=== PATIENT | female | born 1945 ===

== ENCOUNTER 2016-10-16 06:14 | Day surgery (SDC) | payer MEDICARE, OTHER, BC ==
[2016-10-11 11:28] VITALS: BMI 25.9
[2016-10-16 06:43] LABS: ADD MANUAL DIFF? NO
[2016-10-16 06:53] LABS: GRAN % 64.7 % (50.0-68.0); HEMATOCRIT 29.9 % (36.0-48.0); LYMPH # 0.6 (1.2-3.4); LYMPH % 13.2 % (22.0-35.0); MEAN CELL VOLUME 86.7 fL (80.0-105.0); MEAN CORPUSCULAR HEMOGLOBIN 27.8 pg (25.0-35.0); MEAN CORPUSCULAR HGB CONC 32.1 g/dl (31.0-37.0); MEAN PLATELET VOLUME 10.4 fl (7.0-11.0); MONO # 0.9 (0.1-0.6); MONO % 22.1 % (1.0-6.0); PLATELET COUNT 238 10^3/uL (120.0-450.0); RED CELL DISTRIBUTION WIDTH 15.7 % (11.5-14.5); WHITE BLOOD COUNT 4.2 10^3/ul (4.5-11.0)
[2016-10-16] MEDS ORDERED: Iodixanol 320 mg/ml 150 ml Bottle IV ONE (06:55)
[2016-10-16] MEDS ORDERED: Iodixanol 320 MG/ML 200 ML BOTTLE IV ONE (06:55)
[2016-10-16 06:57] LABS: BLOOD UREA NITROGEN 22 mg/dL (7-21); CALCIUM 10.1 mg/dL (8.4-10.5); CARBON DIOXIDE 29 mmol/L (21-33); CHLORIDE 100 mmol/L (98-107); GFR AFRICAN-AMERICAN > 60; GLUCOSE,RANDOM 150 mg/dL (70-110); POTASSIUM 3.9 mmol/L (3.6-5.0); SODIUM 139 mmol/L (132-148)
[2016-10-16 06:59] LABS: INR 1.01 (0.93-1.08); PARTIAL THROMBOPLASTIN TIME 25.8 Seconds (23.7-30.8)
[2016-10-16] MEDS ORDERED: Nitroglycerin 50mg in D5W 250 ML IV ONE (07:09)
[2016-10-16] MEDS ORDERED: Lidocaine 2% Inj (20ml) ONE (07:09)
[2016-10-16] MEDS ORDERED: Midazolam 2 MG/2 ML VIAL ONE ×2 (07:54→08:45)
[2016-10-16] MEDS ORDERED: Sodium Chloride 0.45% 1,000 ML IV SCH (09:45)
[2016-10-16] MEDS ORDERED: Oxycodone/Acetaminophen 5/325 mg Tab ONE ×2 (09:54→14:01)
[2016-10-16] MEDS: Oxycodone/Acetaminophen 5/325 mg Tab PO PRN ×2 (09:55→14:00)
[2016-10-16] MEDS ORDERED: Morphine 2 mg/ml ISec IVP ONE (10:25)
[2016-10-16] MEDS ORDERED: Morphine 2 mg/ml ISec ONE (10:27)
[2016-10-16 11:20] VITALS: RESP 18; TEMP 97.6
[2016-10-16] MEDS ORDERED: Morphine 2 mg/ml ISec IVP STA (11:46)
--- NOTE | 2016-10-16 11:54 | VASCULAR ---
PROCEDURE: 1. Abdominal aortogram and bilateral lower extremity runoff with left selective views. 2. Long segment left SFA silver Hawk atherectomy and drug-eluting balloon angioplasty 3. Left tibioperoneal trunk drug-eluting stent placement HISTORY: Severe peripheral vascular disease. Previous left lower extremity intervention in 2014. Recurrent severe left rest pain. Evaluate for restenosis. PHYSICIAN(S): Caesar Osuna M.D. TECHNIQUE: The relative risks and indications of the procedure were explained to the patient and her and consent obtained. The patient was hydrated prior to the procedure and the appropriate labs drawn. The patient was placed supine on the arteriogram table and the right groin prepped and draped in the usual sterile fashion. Conscious sedation and monitoring were provided throughout the procedure by a nurse. Via a right common femoral artery approach, a 5 American sheath was placed in the right groin. Through the sheath and over a guidewire, a 5 American flush catheter was placed in the abdominal aorta at the level of the renal arteries and a PA DSA abdominal aortogram performed. The catheter was pulled down to the aortic bifurcation and bilateral oblique DSA pelvic arteriograms performed. Overlapping bilateral lower extremity DSA arteriograms were obtained from the inguinal ligaments to the ankles. A 0.035 angled Glidewire was advanced over the bifurcation and placed in the mid left SFA. A 7 American 45 cm destination sheath was placed in the left external iliac artery. Heparin 6000 units IV and nitroglycerin in 250 and see GI aliquot were given. The severe diffuse disease in the left SFA and popliteal arteries was crossed with an angled glidewire 5 American catheter. Exchange was made for a 0.014 support guidewire in the left peroneal artery. 3.5 x 2 cm coronary drug-eluting stent was placed at the focal severe stenosis in the left tibioperoneal trunk. An excellent angiographic result was obtained. Silver Hawk atherectomy of the entire left SFA and left popliteal artery above the knee was performed with an LX catheter. Approximately 4-5 passes were made in all quadrants. The distal left SFA and popliteal arteries were dilated with a 5 mm drug-eluting balloon. The proximal to mid left SFA was dilated with a 6 mm drug-eluting balloon. Completion arteriograms were obtained. The sheath was removed and hemostasis obtained. The patient tolerated the procedure well. FINDINGS: There are single renal arteries bilaterally which demonstrate mild proximal disease.. The nephrograms are symmetric in appearance. The infrarenal abdominal aorta is widely patent without a radiographically significant stenosis. The aortic bifurcation is patent. The stents in the left common and external iliac artery widely patent. No radiographically significant stenosis seen in the iliac inflow. Right lower extremity: The right common femoral artery is patent. The right profunda femoral artery is hypertrophied. The right superficial femoral artery is occluded at its origin. There is reconstitution of the terminal right SFA.. The right popliteal artery is patent and continuous. There is severe right trifurcation and tibial occlusive disease. There is single vessel runoff via the right peroneal artery. A moderate -severe stenosis at the origin of the right peroneal artery is noted. The right posterior tibial and anterior tibial arteries are occluded. Left lower extremity: Left common femoral artery is patent. The left profunda femoral artery is patent proximally. Occlusion of the mid left profunda femoral artery. The left superficial femoral artery is diffusely disease with slow antegrade flow. There are critical stenoses in the mid to distal left SFA. The left popliteal artery is diseased above the knee. Once again there is severe left trifurcation and tibial occlusive disease. There is a severe stenosis of the left tibioperoneal trunk. There is single vessel runoff via the left peroneal artery. There is reconstitution of the distal left posterior tibial artery.. IMPRESSION: 1.Diffuse left SFA silver Hawk atherectomy and drug-eluting balloon angioplasty. 2. Successful left tibioperoneal trunk drug-eluting stent placement 3. Severe bilateral trifurcation and tibial occlusive disease. 4. Long segment right SFA occlusion. 5. And left common and external iliac artery stents.
[2016-10-16 13:00] VITALS: O2SAT 99
[2016-10-16 14:14] VITALS: BP 166/61; PULSE 52
== END 2016-10-16 16:00 | disposition home or self-care (01) ==
LOC: SDSVAS 06:14
PROVIDERS: ATTEND Radiology Vascular & Interventional Radiology
DX: I70.222 Atherosclerosis of native arteries of extremities with rest pain, left leg (principal)
CPT/HCPCS: 36415; 37225; 37230; 75625; 75716; 80048; 85025; 85610; 85730; 99152; 99153; C1714; C1725 ×5; C1760 ×3; C1769 ×3; C1874; C1887 ×2; C1894 ×2; J1644 ×2; J2250; J2270; J2405; J3010; J7030

== ENCOUNTER 2017-01-30 13:32 | Inpatient (IN) | payer MEDICARE, BC ==
[2017-01-30 13:37] VITALS: BMI 22.6
[2017-01-30] MEDS ORDERED: Piperacill/Tazo 4.5gm in NS 4.5 GM/100 ML BAG IVPB STA (14:11)
[2017-01-30] MEDS ORDERED: Vancomycin 1gm in NS 250ml 1 GM/250 ML BAG IVPB STA (14:11)
--- NOTE | 2017-01-30 14:24 | ED PDOC ---
Arrival/HPI - General Chief Complaint: Weakness/Neurological Deficit Time Seen by Provider: 01/30/17 13:58 Historian: Patient - History of Present Illness Narrative History of Present Illness (Text): 01/30/17 14:28 A 71 year old female, whose past medical history includes diabetes and hypertension, presents to the emergency department complaining of generalized weakness and lightheadedness for the past couple of days. Patient also notes poor appetite and a sore throat but denies any cough, abdominal pain or any other complaints at this time. Time/Duration: < week Symptom Onset: Sudden Symptom Course: Unchanged Activities at Onset: Rest Context: Home Past Medical History - Provider Review Nursing Documentation Reviewed: Yes - Infectious Disease Hx of Infectious Diseases: None - Tetanus Immunization Tetanus Immunization: Unknown - Cardiac Hx Hypertension: Yes Hx Pacemaker: No - Pulmonary Hx Respiratory Disorders: No - Neurological Hx Paralysis: No - HEENT Hx Cataracts: Yes (Bilateral surgery) - Renal Hx Renal Disorder: No - Endocrine/Metabolic Hx Diabetes Mellitus Type 2: Yes - Hematological/Oncological Hx Blood Transfusions: No Hx Blood Transfusion Reaction: No Hx Cancer: Yes (Breast Ca & SKin CA) - Integumentary Hx Dermatological Disorder: No - Musculoskeletal/Rheumatological Hx Musculoskeletal Disorders: No - Gastrointestinal Hx Gastroesophageal Reflux: Yes - Genitourinary/Gynecological Hx Genitourinary Disorders: No - Psychiatric Hx Emotional Abuse: No Hx Physical Abuse: No Hx Substance Use: No - Surgical History Hx Open Heart Surgery: Yes Other/Comment: R breast mastectomy - Anesthesia Hx Anesthesia: Yes Hx Anesthesia Reactions: No Hx Malignant Hyperthermia: No - Suicidal Assessment Feels Threatened In Home Enviroment: No Family/Social History - Physician Review Nursing Documentation Reviewed: Yes Family/Social History: No Known Family HX Smoking Status: Never Smoked Hx Alcohol Use: No Hx Substance Use: No Hx Substance Use Treatment: No Allergies/Home Meds Allergies/Adverse Reactions: Allergies No Known Allergies Allergy (Verified 03/06/15 16:23) Home Medications: Home Meds Medication Instructions Recorded Confirmed Aspirin [Aspir 81] 81 mg PO DAILY 10/23/12 01/30/17 Clopidogrel [Plavix] 75 mg PO QPM 10/23/12 01/30/17 Omega3,5,6,7,9 No.1/[place] Oil 1 cap PO DAILY 09/20/15 01/30/17 [Complete [place] Softgel] Rosuvastatin Calcium [Crestor] 5 mg PO DAILY 09/20/15 01/30/17 Losartan/Hydrochlorothiazide 1 tab PO DAILY 10/11/16 01/30/17 [Losartan Potassium-Hydrochlorothiazide 12.5 M] Meclizine [Antivert] 25 mg PO TID PRN 10/11/16 01/30/17 Metformin HCl [Glucophage] 500 mg PO BID 10/11/16 01/30/17 Metoprolol Tartrate [Lopressor] 50 mg PO BID 10/11/16 01/30/17 Mometasone Furoate [Nasonex] 0.05 mg NS DAILY 10/11/16 01/30/17 hydrALAZINE [hydralazine 25 mg PO BID 10/11/16 01/30/17 Hydrochloride] Review of Systems - Physician Review All systems were reviewed & negative as marked: Yes Physical Exam - Physical Exam Narrative Physical Exam (Text): 01/30/17 14:24 - Review of Systems Constitutional: Generalized weakness, lightheadedness. absent: Fatigue, Weight Change, Fevers Eyes: Normal ENT: Sore throat Respiratory: Normal absent: SOB, Cough, Sputum Cardiovascular: Normal absent: Chest pain, Palpitations, Syncope Gastrointestinal: Normal absent: Abdominal pain, Diarrhea, Nausea, Vomiting Genitourinary: Decrease in appetite absent: Dysuria, Frequency, Hematuria Musculoskeletal: Normal. absent: Arthralgias, Back Pain, Neck Pain Skin: Normal Neurological: Normal absent: Focal Weakness Endocrine: Normal Hemo/Lymphatic: Normal Psychiatric: Normal - Physical exam Patient appears age appropriate, speaking full sentences without difficulty - Systems Exam Head: Present: Atraumatic, Normocephalic Pupils: Present: PERRL Extraocular Muscles: Present: EOMI Conjunctiva: Present: Normal Mouth: Present: Dry Mucous Membranes Neck: Present: Normal Range of Motion. No pain with hyoid manipulation. No: MIDLINE TENDERNESS, Paraspinal Tenderness Respiratory/Chest: Present: Clear to Auscultation, Good Air Exchange. No: Respiratory Distress, Accessory Muscle Use, Tachypnic Cardiovascular: Present: Regular Rate and Rhythm, Normal S1, S2, Peripheral Pulses Present. No: Murmurs Abdomen: Present: Normal Bowel Sounds, No: Tenderness, Peritoneal Signs, Rebound, Guarding, Distention Back: Present: Normal Inspection. No: Midline Tenderness, Paraspinal Tenderness Upper Extremity: Present: Normal Inspection. No: Cyanosis, Edema Lower Extremity: Present: Normal Inspection. No: Edema Neurological: Present: GCS=15, Speech Normal, cranial nerves II through XII fully intact with no cerebellar abnormality, neuro-sensory fully intact. No focal neurological deficits. Skin: Present: Warm, Dry, Normal Color. No: Rashes Lymphatic: Present: OX3, NI, NC Psychiatric: Present: Alert, Oriented x 3, Normal Insight, Normal Concentration Vital Signs Reviewed: Yes Vital Signs Temp Pulse Resp BP Pulse Ox 01/30/17 16:01 100.9 F H 01/30/17 13:52 100.9 F H 01/30/17 13:42 98.8 F 79 18 114/56 L 98 Temperature: Afebrile Blood Pressure: Hypotensive Pulse: Regular Respiratory Rate: Normal Appearance: Positive for: Well-Appearing, Non-Toxic, Comfortable, Other ( lethargic) Pain Distress: None Mental Status: Positive for: Alert and Oriented X 3 - Systems Exam Pharnyx: Present: Normal. No: ERYTHEMA, EXUDATE, TONSILS ENLARGED, Peritonsilar Swelling Medical Decision Making ED Course and Treatment: 01/30/17 14:22 Impression: A 71 year old female with generalized weakness, lightheadedness and poor appetite. Appears dehydrated on examination. Differential Diagnosis included but are not limited to: dehydration vs. sepsis vs. uremia Plan: -- EKG -- chest xray -- labs -- Urinalysis -- IV fluids, Tylenol, Vancomycin, Zosyn -- Reassess and disposition Prior Visits: Notes and results from previous visits were reviewed. Patient was last seen in the emergency department on 09/20/15 for evaluation of generalized weakness, poor appetite, dysuria, headache and nasal congestion. Progress Notes: 01/30/17 16:11 BUN elevated, fluids ordered abx ordered K low, kcl and mg ordered Chest xray interpreted by ED physician shows no pneumothorax, no cardiomegaly, no infiltrates pt in no distress at this time dw Dr. Bowden, agrees with admission to her service pt and aware of and agree with plan - Lab Interpretations Lab Results: 01/30/17 15:00 01/30/17 15:00 Lab Results 01/30/17 15:00: Sodium 138, Chloride 104, Potassium 3.1 L, Carbon Dioxide 19 L, Anion Gap 18, BUN 50 H, Creatinine 1.1, Est GFR ( Amer) 59, Est GFR (Non- Af Amer) 49, Random Glucose 125 H, Calcium 9.3, Phosphorus 2.7, Magnesium 1.6 L , Total Bilirubin 0.5, AST 35, ALT 28, Alkaline Phosphatase 80, Total Protein 7.5, Albumin 3.8, Globulin 3.8, Albumin/Globulin Ratio 1.0 L 01/30/17 15:00: pO2 44, VBG pH 7.37, VBG pCO2 40.0, VBG HCO3 23.1, VBG Total CO2 24.3, VBG O2 Sat (Calc) 84.1 H, VBG Base Excess -2.0 L, VBG Potassium 3.8, Sodium 135.0, Chloride 104.0, Glucose 145 H, Lactate 1.4, FiO2 21.0, Venous Blood Potassium 3.8 01/30/17 15:00: PT 11.8, INR 1.09 H, APTT 32.8 H 01/30/17 15:00: WBC 6.8 D, RBC 3.17 L, Hgb 8.9 L, Hct 26.4 L, MCV 83.3, MCH 28.1, MCHC 33.7, RDW 15.4 H, Plt Count 110 L, MPV 11.8 H, Gran % 86.4 H, Lymph % (Auto) 4.3 L, [place] % (Auto) 9.3 H, Eos % (Auto) 0.0 L, Baso % (Auto) 0.0, Gran # 5.88, Lymph # 0.3 L, [place] # 0.6, Eos # 0.0, Baso # 0.00 I have reviewed the lab results: Yes - RAD Interpretation Radiology Orders: 01/30/17 14:11 CHEST PORTABLE [RAD] Stat - EKG Interpretation Interpreted by ED Physician: Yes Type: 12 lead EKG - Medication Orders Current Medication Orders: Magnesium Sulfate/Dextrose (Magnesium Sulfate 1 Gm/100 Ml D5w) 1 gm in 100 mls @ 100 mls/hr IVPB ONCE ONE Stop: 01/30/17 17:06 Potassium Chloride (Potassium Chloride 20 Meq/100 Ml) 20 meq in 100 mls @ 50 mls/hr IVPB Q2H SETH Stop: 01/30/17 20:14 Discontinued Medications Acetaminophen (Tylenol 325mg Tab) 975 mg PO ONCE PRN PRN Reason: Fever >100.4 F Last Admin: 01/30/17 16:01 Dose: 975 mg Sodium Chloride 2,000 ml/ IV (SUPPLIES) 2,000 mls @ 3,810.18 mls/hr IV ONCE ONE PRN Reason: 60 ML/KG/HR Stop: 01/30/17 14:12 Last Admin: 01/30/17 15:20 Dose: 3,810.18 mls/hr Vancomycin HCl (Vancomycin 1gm) 1 gm in 250 mls @ 167 mls/hr IVPB STAT STA PRN Reason: Protocol Stop: 01/30/17 15:40 Piperacillin Sod/Tazobactam Sod (Zosyn 4.5 Gm In Ns 100ml) 4.5 gm in 100 mls @ 200 mls/hr IVPB STAT STA PRN Reason: Protocol Stop: 01/30/17 14:40 Last Admin: 01/30/17 15:20 Dose: 200 mls/hr Potassium Chloride (K-Dur 20 Meq Er Tab) 20 meq PO STAT STA Stop: 01/30/17 16:08 - Scribe Statement The provider has reviewed the documentation as recorded by the Ernesto Singh Provider Scribe Attestation: All medical record entries made by the Ernesto were at my direction and personally dictated by me. I have reviewed the chart and agree that the record accurately reflects my personal performance of the history, physical exam, medical decision making, and the department course for this patient. I have also personally directed, reviewed, and agree with the discharge instructions and disposition. Disposition/Present on Arrival - Present on Arrival Any Indicators Present on Arrival: No History of DVT/PE: No History of Uncontrolled Diabetes: No Urinary Catheter: No History of Decub. Ulcer: No History Surgical Site Infection Following: None - Disposition Have Diagnosis and Disposition been Completed?: Yes Diagnosis: Fever Disposition: HOSPITALIZED Disposition Time: 16:14 Patient Plan: Admission Condition: FAIR
[2017-01-30 15:21] LABS: VENOUS BLOOD GAS PO2 44 mm/Hg (30-55); VENOUS BLOOD PH 7.37 (7.32-7.43)
[2017-01-30 15:28] LABS: GRAN # 5.88 (1.4-6.5); GRAN % 86.4 % (50.0-68.0); HEMOGLOBIN 8.9 gm/dL (12.0-16.0); LYMPH # 0.3 (1.2-3.4); LYMPH % 4.3 % (22.0-35.0); MEAN CELL VOLUME 83.3 fL (80.0-105.0); MEAN CORPUSCULAR HEMOGLOBIN 28.1 pg (25.0-35.0); MEAN CORPUSCULAR HGB CONC 33.7 g/dl (31.0-37.0); MEAN PLATELET VOLUME 11.8 fl (7.0-11.0); MONO # 0.6 (0.1-0.6); MONO % 9.3 % (1.0-6.0); PLATELET COUNT 110 10^3/uL (120.0-450.0); RBC 3.17 10^6/uL (3.5-6.1); RED CELL DISTRIBUTION WIDTH 15.4 % (11.5-14.5); WHITE BLOOD COUNT 6.8 10^3/ul (4.5-11.0)
[2017-01-30 15:31] LABS: ALBUMIN 3.8 g/dL (3.0-4.8); CALCIUM 9.3 mg/dL (8.4-10.5); MAGNESIUM 1.6 mg/dL (1.7-2.2)
[2017-01-30 15:33] LABS: INR 1.09 (0.93-1.08); PARTIAL THROMBOPLASTIN TIME 32.8 Seconds (23.7-30.8); PROTHROMBIN TIME 11.8 Seconds (9.9-11.8)
--- NOTE | 2017-01-30 15:33 | RAD ---
HISTORY: Sepsis Patient COMPARISON: 09/20/2015 FINDINGS: LUNGS: The lungs us clear. There is a running suture in the right lower lobe. No focal consolidation. PLEURA: No significant pleural effusion identified, no pneumothorax apparent. CARDIOVASCULAR: The heart is normal in size. Status post median sternotomy. OSSEOUS STRUCTURES: No significant abnormalities. VISUALIZED UPPER ABDOMEN: Normal. OTHER FINDINGS: There are multiple surgical clips in the right axilla. IMPRESSION: No active pulmonary disease.
[2017-01-30] MEDS ORDERED: Magnesium Sulfate 1 gm in D5W 1 GM/100 ML BAG IVPB ONE (16:07)
[2017-01-30] MEDS ORDERED: Potassium Chloride 20 mEq ER Tab PO STA (16:07)
--- NOTE | 2017-01-30 18:39 | CARD ---
APPROVED REPORT EKG Measurement Heart [id number] <Conclusion> Normal sinus rhythm Possible Left atrial enlargement Borderline ECG
--- NOTE | 2017-01-30 21:25 | CT ---
EXAM: CT Chest Without Intravenous Contrast CLINICAL HISTORY: 71 years old, female; Signs and symptoms; Fever; Additional info: Fever/wt loss TECHNIQUE: Axial computed tomography images of the chest without intravenous contrast. This CT exam was performed using one or more of the following dose reduction techniques: automated exposure control, adjustment of the mA and/or kV according to patient size, and/or use of iterative reconstruction technique. MIP reconstructed images were created and reviewed. Coronal and sagittal reformatted images were created and reviewed. COMPARISON: DX - CHEST PORTABLE 01/30/2017 2:40:13 PM FINDINGS: Limitations: Lack of intravenous contrast. Motion artifact - mild to moderate. Lungs: No consolidation. Postsurgical changes/scarring within RIGHT lung base. Limited evaluation for nodules due to motion. Few subcentimeter pulmonary nodules and/or focal scarring, up to 0.3 cm. Pleural space: Trace LEFT pleural effusion. No pneumothorax. Heart: Borderline cardiomegaly. No significant pericardial effusion. Coronary artery calcifications. Bones/joints: Median sternotomy. Degenerative changes of spine. No acute fracture. Soft tissues: Mild stranding within subcutaneous tissues. Postsurgical changes of RIGHT axilla. Vasculature: Mild atherosclerotic disease of aorta. No aneurysm. Lymph nodes: No pathologically enlarged lymph nodes. IMPRESSION: 1. Trace LEFT pleural effusion. 2. Pulmonary nodules. Compare with prior examinations/followup as per institution protocol. 3. Incidental/non-acute findings are described above.
[2017-01-30] MEDS: Insulin Lispro (humaLOG) MEDIUM Coverage SC SCH (23:08)
--- NOTE | 2017-01-31 00:47 | CP.PCM.PN ---
Subjective - Date & Time of Evaluation Date of Evaluation: 01/31/17 Time of Evaluation: 00:45 - Subjective Subjective: Patient was seen at bedside. She had temperature 102.9*F. Also complained of weakness. Received tyl 975 @ 4 pm Received zosyn, vancomycin. Blood culture, u/a c&s ,cxr done. ROS:Negative except as mentioned above. This 71 year old woman was admitted with weakness,dizziness,light headedness and complaint of not eating well. Has PMH of HTN,HLD, CAD, open hear surgery ,angioplast for Fem Pop bypass . Objective - Vital Signs/Intake and Output Vital Signs (last 24 hours): Temp Pulse Resp BP Pulse Ox 100.9 F H 98 H 16 133/84 100 01/30/17 22:38 01/30/17 23:00 01/30/17 22:38 01/30/17 23:00 01/30/17 20:02 - Medications Medications: Current Medications Aspirin (Ecotrin) 81 mg PO DAILY SETH Clopidogrel Bisulfate (Plavix) 75 mg PO QPM [facility] Ceftriaxone Sodium (Rocephin 1 Gram Ivpb) 1 gm in 100 mls @ 100 mls/hr IVPB DAILY SETH PRN Reason: Protocol Insulin Human Lispro (Humalog Med) 0 units SC ACHS SETH PRN Reason: Protocol Last Admin: 01/30/17 23:08 Dose: Not Given Meclizine HCl (Antivert) 25 mg PO TID PRN PRN Reason: Dizziness Metoprolol Tartrate (Lopressor) 50 mg PO BID [facility] Last Admin: 01/30/17 23:00 Dose: 50 mg - Labs Labs: PT 11.8 Seconds (9.9-11.8) 01/30/17 15:00 INR 1.09 (0.93-1.08) H 01/30/17 15:00 APTT 32.8 Seconds (23.7-30.8) H 01/30/17 15:00 - Constitutional Appears: Well, No Acute Distress - Head Exam Head Exam: ATRAUMATIC, NORMAL INSPECTION, NORMOCEPHALIC - Eye Exam Eye Exam: Normal appearance - ENT Exam ENT Exam: Normal External Ear Exam - Neck Exam Neck Exam: Normal Inspection - Respiratory Exam Respiratory Exam: NORMAL BREATHING PATTERN - Cardiovascular Exam Cardiovascular Exam: absent: JVD - GI/Abdominal Exam GI & Abdominal Exam: absent: Distended - Rectal Exam Rectal Exam: Deferred - Exam Additional comments: Deferred. - Extremities Exam Extremities Exam: Normal Inspection - Back Exam Back Exam: NORMAL INSPECTION - Neurological Exam Neurological Exam: Alert, Oriented x3 - Psychiatric Exam Psychiatric exam: Normal Affect, Normal Mood - Skin Skin Exam: Normal Color Assessment and Plan - Assessment and Plan (Free Text) Assessment: Fever. HTN. HLD. Hx open heart surgery. Hx Fem Pop bypass surgery. Plan: Tylenol as ordered. ID consultation. Continue present management .
--- NOTE | 2017-01-31 05:24 | HP ---
HISTORY OF PRESENT ILLNESS: The patient is 71 years old who came to emergency room because of generalized weakness, feels dizzy, lightheaded and has not been eating well. It is going on for almost a week. She lost some weight, poor appetite. No history of fever or chills at home. No history of hemoptysis. No hematemesis. No diarrhea. PAST MEDICAL HISTORY: Significant for: 1. Cardiac cath and coronary artery disease, had cath done in 03/2014. 2. Hypertension. 3. Hyperlipidemia. 4. History of open heart surgery. 5. Status post angioplasty for left femoropopliteal trunk trifurcation. SOCIAL HISTORY: She is , lives with her . No history of smoking, drinking or alcohol use. FAMILY HISTORY: Not relevant. ALLERGIES: SHE IS NOT ALLERGIC TO ANY MEDICATIONS. MEDICATIONS AT HOME: She is on: 1. [place]-3 fish oil. 2. Losartan 50 mg daily. 3. Anastrozole 1 mg daily. 4. Hydralazine 25 twice a day. 5. Lopressor 50 mg twice a day. 6. Aspirin 81 daily. 7. Metformin 500 twice a day. 8. Metoprolol 50 mg daily. 9. Crestor 5 mg daily. 10. Nasonex nasal spray. PHYSICAL EXAMINATION GENERAL: She looks lethargic and weak. HEAD AND NECK: Dry oral mucosa. Pale conjunctivae. No lymphadenopathy. VITAL SIGNS: Temperature 100.9, pulse 79, respirations 18 and blood pressure 127/57. LUNGS: Bilateral fair airflow. No rhonchi or crackle. HEART: S1 and S2 audible. ABDOMEN: Soft and nontender. No rebound. No guarding. NEUROLOGIC: The patient is awake and alert, sleepy but arousable. LABORATORY DATA: WBC 6.8, hemoglobin 8.9, hematocrit 26.4 and platelet of 110. INR 1.09 and PTT 32.8. Chemistry: Sodium 138, potassium 3.1, chloride 104, CO2 of 19, BUN 50, creatinine 1.1, blood sugar of 129 and magnesium 1.6. EKG is normal sinus rhythm, possible left atrial enlargement. X-ray chest, no active disease. ASSESSMENT AND PLAN: 1. Dehydration with poor appetite and weight loss. 2. Hypokalemia. 3. Hypomagnesemia. 4. Coronary artery disease, status post open heart surgery. 5. Non-insulin dependent diabetes. 6. Fever with normal white count, source is unknown yet. We will send blood culture and urine culture. I have ordered for CT scan of the chest and will start her on IV fluid. Monitor her electrolyte and H and H in a.m. Aldo Sierra MD
[2017-01-31 09:04] LABS: GRAN # 3.05 (1.4-6.5); HEMOGLOBIN 9.2 gm/dL (12.0-16.0); LYMPH # 0.1 (1.2-3.4); LYMPH % 2.4 % (22.0-35.0); MEAN CELL VOLUME 83.9 fL (80.0-105.0); MEAN CORPUSCULAR HEMOGLOBIN 27.9 pg (25.0-35.0); MEAN CORPUSCULAR HGB CONC 33.2 g/dl (31.0-37.0); MEAN PLATELET VOLUME 11.3 fl (7.0-11.0); MONO # 0.6 (0.1-0.6); MONO % 15.6 % (1.0-6.0); PLATELET COUNT 75 10^3/uL (120.0-450.0); RED CELL DISTRIBUTION WIDTH 15.5 % (11.5-14.5); WHITE BLOOD COUNT 3.7 10^3/ul (4.5-11.0)
[2017-01-31 09:15] LABS: ALBUMIN 3.9 g/dL (3.0-4.8); CALCIUM 9.6 mg/dL (8.4-10.5); MAGNESIUM 1.8 mg/dL (1.7-2.2)
[2017-01-31] MEDS: cefTRIAXone 1 gm 1 GM/100 ML BAG IVPB SCH (09:55)
[2017-01-31] MEDS ORDERED: Non Formulary Medication (Losartan/Hydrochlorothiazide [Losartan-Hctz 50-12.5 Mg Tab] 1 TA PO SCH (10:00)
[2017-01-31] MEDS: Insulin Lispro (humaLOG) MEDIUM Coverage SC SCH ×3 (10:58→17:02)
[2017-01-31] MEDS: POLYETHYLENE GLYCOL 3350 17 GM/Dose PACKET PO SCH (17:05)
--- NOTE | 2017-01-31 17:44 | PN ---
SUBJECTIVE: The patient is a 71 years old, seen and examined. She states she feels lot better. She has generalized weakness going for 2 to 3 days with low grade fever at home. She still does not have appetite. No nausea or vomiting. PHYSICAL EXAMINATION: VITAL SIGNS: She is afebrile, pulse 68, respirations 16, and blood pressure 113/51. LUNGS: Bilateral fair airflow. No rhonchi or crackle. HEART: S1 and S2 audible. ABDOMEN: Soft. Nontender. No rebound. No guarding. NEUROLOGIC: The patient is awake and alert; able to communicate. No focal deficit. Bilateral leg, no edema. LABORATORY DATA: Blood cultures are negative. Urine cultures are pending. WBC is 3.7, hemoglobin 9.2, hematocrit 37, and platelet count of 75. PT 11.8 and INR 1.09. Chemistries: Sodium 141, potassium of 4.0, chloride 107, CO2 of 18, BUN 23, creatinine 1.5, blood sugar of 139, AST 88, ALT 74, alkaline phos is 202. CT scan of the chest was done that shows traced left pleural effusion, pulmonary nodule. ASSESSMENT AND PLAN: 1. Generalized weakness with poor appetite. 2. Fever, etiology unknown. 3. History of hypertension. 4. Constipation. 5. Pancytopenia. PLAN: for iron studies; order for abdominal sonogram, for consult. I will also order for hepatitis profile. Continue IV fluid, out of bed to chair with physical therapy. We will reevaluate the patient in a.m. and discontinued telemetry. Aldo Sierra MD
--- NOTE | 2017-01-31 23:23 | US ---
EXAM: US Abdomen Complete CLINICAL HISTORY: 71 years old, female; Pain; Abdominal pain; Acute; Additional info: Abnormal lfts TECHNIQUE: Real-time ultrasound of the abdomen (complete) with image documentation. COMPARISON: No relevant prior studies available. FINDINGS: Liver: The liver is unremarkable in echogenicity and size measuring 14.3 cm in longitudinal dimension. No acute findings. No intrahepatic bile duct dilation. Gallbladder: No acute findings. No gallstones. Common bile duct: No stones. No dilation, measuring 4.5 mm. Pancreas: Visualization of the pancreas is limited by overlying bowel gas. Right kidney: Unremarkable echogenicity and size measuring 9.2 x 3.9 x 5.5 cm. No acute findings. No hydronephrosis. Left Kidney: Unremarkable in echogenicity and size measuring 9.2 x 4.8 x 5.4 cm. No hydronephrosis. Spleen: Within the upper limits of normal for size measuring 11.5 cm in longitudinal dimension. Aorta: Unremarkable. Inferior vena cava: patent. IMPRESSION: Limited evaluation of the pancreas, secondary to overlying bowel gas. Spleen within the upper limits of normal for size. Otherwise, unremarkable sonographic evaluation of the abdomen, as detailed above.
[2017-02-01] MEDS: Insulin Lispro (humaLOG) MEDIUM Coverage SC SCH ×5 (00:18→21:58)
[2017-02-01 06:34] LABS: MEAN CELL VOLUME 82.2 fL (80.0-105.0); MEAN CORPUSCULAR HEMOGLOBIN 27.4 pg (25.0-35.0); MEAN CORPUSCULAR HGB CONC 33.3 g/dl (31.0-37.0); MEAN PLATELET VOLUME 11.8 fl (7.0-11.0); PLATELET COUNT 70 10^3/uL (120.0-450.0); RBC 2.59 10^6/uL (3.5-6.1); RED CELL DISTRIBUTION WIDTH 15.6 % (11.5-14.5); WHITE BLOOD COUNT 3.3 10^3/ul (4.5-11.0)
[2017-02-01 06:37] LABS: HEMOGLOBIN 7.1 gm/dL (12.0-16.0)
[2017-02-01 06:57] LABS: ALBUMIN 3.1 g/dL (3.0-4.8); ALT/SGPT 73 U/L (7-56); AST/SGOT 71 U/L (15-39); BLOOD UREA NITROGEN 35 mg/dL (7-21); CALCIUM 8.6 mg/dL (8.4-10.5); GFR AFRICAN-AMERICAN 59; GFR NON-AFRICAN AMERICAN 49
[2017-02-01 06:59] LABS: % IRON SATURATION 15 % (20-55); IRON 30 ug/dL (45-180); TOTAL IRON BINDING CAPACITY 205 ug/dL (265-497)
[2017-02-01 08:19] LABS: BAND 2 % (0-2); LYMPHOCYTE 13 % (22.0-35.0); METAMYELOCYTE 1 %; MONOCYTE 11 % (1.0-6.0); NEUTROPHIL 73 % (50.0-70.0)
[2017-02-01 08:20] LABS: LARGE PLATELETS PRESENT; PLATELET ESTIMATE LOW (NORMAL)
[2017-02-01] MEDS: cefTRIAXone 1 gm 1 GM/100 ML BAG IVPB SCH (09:18)
[2017-02-01] MEDS: POLYETHYLENE GLYCOL 3350 17 GM/Dose PACKET PO SCH (09:22)
[2017-02-01] MEDS: Potassium Chloride 20 mEq ER Tab PO SCH (10:46)
--- NOTE | 2017-02-01 11:36 | CP.PCM.PN ---
Subjective - Date & Time of Evaluation Date of Evaluation: 02/01/17 Time of Evaluation: 11:35 - Subjective Subjective: pt needs angiocath insertion . Objective - Vital Signs/Intake and Output Vital Signs (last 24 hours): Temp Pulse Resp BP Pulse Ox 98.6 F 67 20 113/63 96 02/01/17 06:00 02/01/17 09:22 02/01/17 06:00 02/01/17 09:22 02/01/17 06:00 Intake and Output: 02/01/17 02/01/17 06:59 18:59 Intake Total 120 Balance 120 - Medications Medications: Current Medications Acetaminophen (Tylenol 325mg Tab) 650 mg PO Q4H PRN PRN Reason: Temp > 100.4*F. Last Admin: 02/01/17 10:46 Dose: 650 mg Acetaminophen (Tylenol 325mg Tab) 650 mg PO Q6H PRN PRN Reason: Other Aspirin (Ecotrin) 81 mg PO DAILY [facility] Last Admin: 02/01/17 09:35 Dose: Not Given Clopidogrel Bisulfate (Plavix) 75 mg PO QPM [facility] Last Admin: 01/31/17 17:01 Dose: 75 mg Ceftriaxone Sodium (Rocephin 1 Gram Ivpb) 1 gm in 100 mls @ 100 mls/hr IVPB DAILY [facility] PRN Reason: Protocol Last Admin: 02/01/17 09:18 Dose: 100 mls/hr Insulin Human Lispro (Humalog Med) 0 units SC ACHS [facility] PRN Reason: Protocol Last Admin: 02/01/17 08:04 Dose: Not Given Meclizine HCl (Antivert) 25 mg PO TID PRN PRN Reason: Dizziness Metoprolol Tartrate (Lopressor) 50 mg PO BID [facility] Last Admin: 02/01/17 09:22 Dose: 50 mg Polyethylene Glycol (Miralax) 17 gm PO DAILY [facility] Last Admin: 02/01/17 09:22 Dose: 17 gm Potassium Chloride (K-Dur 20 Meq Er Tab) 20 meq PO BRK [facility] Last Admin: 02/01/17 10:46 Dose: 20 meq - Labs Labs: 02/01/17 08:30 02/01/17 06:10 PT 11.8 Seconds (9.9-11.8) 01/30/17 15:00 INR 1.09 (0.93-1.08) H 01/30/17 15:00 APTT 32.8 Seconds (23.7-30.8) H 01/30/17 15:00 Assessment and Plan - Assessment and Plan (Free Text) Assessment: 20 guage angiocath inserted in left wrist area.
--- NOTE | 2017-02-01 11:42 | CP.PCM.CON ---
<Tammie Dumont - Last Filed: 02/01/17 11:49> History of Present Illness - History of Present Illness History of Present Illness: Seen and examined at bedside, chart reviewed. Request for consult is for Anemia. HPI: This is a 71 year old female with a PMH of CAD, cardiac catherization 2013 on Plavix, HTN, Colon polyps, Anemia came to the ER with complaints of generalized weakness, dizziness and poor appetite. Patient denies fever, chills , N/V or abdominal pain. Had fever 102 on admission, blood culture negative, she had CXR that was negative for acute findings, ct scan of the chest was done and found to have trace pleural effusion, pulmonary nodules that unchanged, compared to one done 01/2015. On routine labs, hemaglobin is 7.1, on admission was 9.2. The patient denies SOB, CP,N/V. Does not notice melena or BRBPR. She just getting her weight back, she was in the hospital for fall in July. Her last EGD/Colon was done for Anemia 06/[address] Angulo, found gastric erosion, negative BX, and colon polyps that was tubular adenoma, rectal polyps was hyperplastic. No change in bowel habit, denies relux. She did state that she has been on iron supplements in the past. Her PCP, Dr. Magana gave her a script for EGD, she has yet to get this set up. PMH: CAD, cardiac catherization 2013, HTN, HLD,Anemia, colon polyps PSH: open heart , angioplasty left femoropopliteal trunk trifurcation Social HX: denies smoking, etoh, drugs Family HX: nephew, stomach cancer Allergies: NKDA MEDS: reviewed as per SEP ROS: systems reviewed with positive findings, see HPI Abdominal US: no GB stone, CBD 4.5mm, unremarkable, pancreas limited secondary to gas. Past Patient History - Infectious Disease Hx of Infectious Diseases: None - Tetanus Immunizations Tetanus Immunization: Unknown - Past Social History Smoking Status: Never Smoked - CARDIAC Hx Hypertension: Yes - PULMONARY Hx Respiratory Disorders: No - NEUROLOGICAL Hx Neurological Disorder: No - HEENT Hx Cataracts: Yes (Bilateral surgery) - RENAL Hx Chronic Kidney Disease: No - ENDOCRINE/METABOLIC Hx Diabetes Mellitus Type 2: Yes - HEMATOLOGICAL/ONCOLOGICAL Hx Cancer: Yes (Breast Ca & SKin CA) Hx Chemotherapy: Yes Other/Comment: diagnosed with r breast ca 2 yrs ago had chemo and radiation - INTEGUMENTARY Hx Dermatological Problems: No - MUSCULOSKELETAL/RHEUMATOLOGICAL Hx Falls: No Hx Unsteady Gait: Yes (cane) - GASTROINTESTINAL Hx Gastroesophageal Reflux: Yes Other/Comment: egd/colonoscopy 06/11/14,hiatal hernia, esophagitis, gastric erosions, duodenitis, diverticulosis, redundant colon, polyps, hemorrhoids - GENITOURINARY/GYNECOLOGICAL Hx Genitourinary Disorders: No - PSYCHIATRIC Hx Emotional Abuse: No Hx Physical Abuse: No Hx Substance Use: No - SURGICAL HISTORY Hx Surgeries: Yes (t&a, r lumpectomy) Hx Cardiac Catheterization: Yes Hx Coronary Stent: Yes (ptca w/ stents 2011) Hx Open Heart Surgery: Yes Other/Comment: R breast mastectomy, 10/16/16 abd aortagram and b/l lower ext runoff, angioplasty,stent - ANESTHESIA Hx Anesthesia: Yes Hx Anesthesia Reactions: No Hx Malignant Hyperthermia: No Meds Allergies/Adverse Reactions: Allergies Allergy/AdvReac Type Severity Reaction Status Date / Time No Known Allergies Allergy Verified 03/06/15 16:23 - Medications Medications: Current Medications Acetaminophen (Tylenol 325mg Tab) 650 mg PO Q4H PRN PRN Reason: Temp > 100.4*F. Last Admin: 02/01/17 10:46 Dose: 650 mg Acetaminophen (Tylenol 325mg Tab) 650 mg PO Q6H PRN PRN Reason: Other Aspirin (Ecotrin) 81 mg PO DAILY [facility] Last Admin: 02/01/17 09:35 Dose: Not Given Clopidogrel Bisulfate (Plavix) 75 mg PO QPM [facility] Last Admin: 01/31/17 17:01 Dose: 75 mg Ceftriaxone Sodium (Rocephin 1 Gram Ivpb) 1 gm in 100 mls @ 100 mls/hr IVPB DAILY [facility] PRN Reason: Protocol Last Admin: 02/01/17 09:18 Dose: 100 mls/hr Insulin Human Lispro (Humalog Med) 0 units SC ACHS [facility] PRN Reason: Protocol Last Admin: 02/01/17 08:04 Dose: Not Given Meclizine HCl (Antivert) 25 mg PO TID PRN PRN Reason: Dizziness Metoprolol Tartrate (Lopressor) 50 mg PO BID [facility] Last Admin: 02/01/17 09:22 Dose: 50 mg Polyethylene Glycol (Miralax) 17 gm PO DAILY [facility] Last Admin: 02/01/17 09:22 Dose: 17 gm Potassium Chloride (K-Dur 20 Meq Er Tab) 20 meq PO BRK [facility] Last Admin: 02/01/17 10:46 Dose: 20 meq Physical Exam - Constitutional Appears: No Acute Distress - Head Exam Head Exam: NORMAL INSPECTION - Eye Exam Eye Exam: Normal appearance. absent: Scleral icterus - ENT Exam ENT Exam: Mucous Membranes Moist - Neck Exam Neck exam: Positive for: Normal Inspection - Respiratory Exam Respiratory Exam: Clear to Auscultation Bilateral, NORMAL BREATHING PATTERN. absent: Respiratory Distress - Cardiovascular Exam Cardiovascular Exam: +S1, +S2 - GI/Abdominal Exam GI & Abdominal Exam: Normal Bowel Sounds, Soft. absent: Distended, Guarding, Organomegaly, Rebound, Tenderness - Extremities Exam Extremities exam: Positive for: pedal pulses present. Negative for: calf tenderness, pedal edema - Neurological Exam Neurological exam: Alert, Oriented x3 - Skin Skin Exam: Dry, Pallor, Warm Results - Vital Signs Recent Vital Signs: Last Vital Signs Temp 98.6 F 02/01/17 06:00 Pulse 67 02/01/17 09:22 Resp 20 02/01/17 06:00 BP 113/63 02/01/17 09:22 Pulse Ox 96 02/01/17 06:00 - Labs Result Diagrams: 02/01/17 08:30 02/01/17 06:10 Labs: Laboratory Results - last 24 hr 01/31/17 02/01/17 02/01/17 10:00 06:10 06:10 WBC 3.3 L RBC 2.59 L Hgb 7.1 L D Hct 21.3 L MCV 82.2 MCH 27.4 MCHC 33.3 RDW 15.6 H Plt Count 70 L MPV 11.8 H Baso # Software Reverse Engineer Neutrophils % (Manual) 73 H Band Neutrophils % 2 Lymphocytes % (Manual) 13 L Monocytes % (Manual) 11 H Metamyelocytes % 1 Platelet Evaluation Low Large Platelets Present Sodium Potassium Chloride Carbon Dioxide Anion Gap BUN Creatinine Est GFR ( Amer) Est GFR (Non-Af Amer) Random Glucose Calcium Iron 30 L TIBC 205 L % Saturation 15 L Total Bilirubin AST ALT Alkaline Phosphatase Lactate Dehydrogenase Total Protein Albumin Globulin Albumin/Globulin Ratio Procalcitonin 2.03 H Blood Type Antibody Screen Crossmatch BBK History Checked 02/01/17 02/01/17 02/01/17 06:10 08:30 08:30 WBC RBC Hgb 7.0 L Hct 21.1 L MCV MCH MCHC RDW Plt Count MPV Baso # Neutrophils % (Manual) Band Neutrophils % Lymphocytes % (Manual) Monocytes % (Manual) Metamyelocytes % Platelet Evaluation Large Platelets Sodium 135 Potassium 3.4 L Chloride 105 Carbon Dioxide 18 L Anion Gap 15 BUN 35 H Creatinine 1.1 Est GFR ( Amer) 59 Est GFR (Non-Af Amer) 49 Random Glucose 113 H Calcium 8.6 Iron TIBC % Saturation Total Bilirubin 0.3 AST 71 H ALT 73 H Alkaline Phosphatase 179 H Lactate Dehydrogenase 389 Total Protein 6.3 Albumin 3.1 Globulin 3.2 Albumin/Globulin Ratio 1.0 L Procalcitonin Blood Type B POSITIVE Antibody Screen Negative Crossmatch See Detail BBK History Checked Patient has bt Assessment & Plan - Assessment and Plan (Free Text) Assessment: ASSESSMENT: Anemia, Iron deficiency r/o GI Bleed, angiodysplasia, maligancy H/O colon polyps CAD Fever, unknown etiology H/O pulmonary nodules, unchanged ,see ct chest HTN Weight loss Elevated LFT, abdominal US, no acute findings, ? congestion, ? fever Acute Renal Failure Pancytopenia PLAN: stool guiac pending blood transfusion FU ferritin, folate, VIt B12 continue PPI on Plavix & aspirin ct scan Abdomen and pelvis w/oral contrastm would benefit from EGD for further evaluation when optimal request UA & urine c/s on ceftriaxone trend lft, FU hepatitis panel hematology workup Thank you for this consult and for allowing us to participate in your pateint care, will make further recommendation based upon clinical course. Seen and discussed w/ Dr. Lugo. <Marisel Lugo V - Last Filed: 02/01/17 23:42> Meds - Medications Medications: Current Medications Acetaminophen (Tylenol 325mg Tab) 650 mg PO Q4H PRN PRN Reason: Temp > 100.4*F. Last Admin: 02/01/17 10:46 Dose: 650 mg Acetaminophen (Tylenol 325mg Tab) 650 mg PO Q6H PRN PRN Reason: Other Aspirin (Ecotrin) 81 mg PO DAILY [facility] Last Admin: 07/27/17 09:35 Dose: Not Given Clopidogrel Bisulfate (Plavix) 75 mg PO QPM [facility] Last Admin: 02/01/17 17:33 Dose: 75 mg Ceftriaxone Sodium (Rocephin 1 Gram Ivpb) 1 gm in 100 mls @ 100 mls/hr IVPB DAILY [facility] PRN Reason: Protocol Last Admin: 02/01/17 09:18 Dose: 100 mls/hr Insulin Human Lispro (Humalog Med) 0 units SC ACHS [facility] PRN Reason: Protocol Last Admin: 02/01/17 21:58 Dose: Not Given Meclizine HCl (Antivert) 25 mg PO TID PRN PRN Reason: Dizziness Metoprolol Tartrate (Lopressor) 50 mg PO BID [facility] Last Admin: 02/01/17 17:34 Dose: Not Given Polyethylene Glycol (Miralax) 17 gm PO DAILY [facility] Last Admin: 02/01/17 09:22 Dose: 17 gm Potassium Chloride (K-Dur 20 Meq Er Tab) 20 meq PO BRK [facility] Last Admin: 02/01/17 10:46 Dose: 20 meq Results - Vital Signs Recent Vital Signs: Last Vital Signs Temp 97.9 F 02/01/17 18:19 Pulse 54 L 02/01/17 18:19 Resp 18 02/01/17 18:19 BP 115/58 L 02/01/17 18:19 Pulse Ox 99 02/01/17 16:00 - Labs Result Diagrams: 02/01/17 08:30 02/01/17 06:10 Labs: Laboratory Results - last 24 hr 01/30/17 01/31/17 01/31/17 21:13 05:30 07:15 WBC RBC Hgb Hct MCV MCH MCHC RDW Plt Count MPV Baso # Neutrophils % (Manual) Band Neutrophils % Lymphocytes % (Manual) Monocytes % (Manual) Metamyelocytes % Platelet Evaluation Large Platelets Sodium Potassium Chloride Carbon Dioxide Anion Gap BUN Creatinine Est GFR ( Amer) Est GFR (Non-Af Amer) POC Glucose (mg/dL) 136 H 158 H Random Glucose Calcium Iron TIBC % Saturation Ferritin Total Bilirubin AST ALT Alkaline Phosphatase Lactate Dehydrogenase Total Protein Albumin Globulin Albumin/Globulin Ratio Vitamin B12 Folate Hepatitis A IgM Ab Negative Hep Bs Antigen Negative Hep B Core IgM Ab Negative Hepatitis C Antibody Negative Blood Type Antibody Screen Crossmatch BBK History Checked 01/31/17 01/31/17 01/31/17 11:06 16:03 21:49 WBC RBC Hgb Hct MCV MCH MCHC RDW Plt Count MPV Baso # Neutrophils % (Manual) Band Neutrophils % Lymphocytes % (Manual) Monocytes % (Manual) Metamyelocytes % Platelet Evaluation Large Platelets Sodium Potassium Chloride Carbon Dioxide Anion Gap BUN Creatinine Est GFR ( Amer) Est GFR (Non-Af Amer) POC Glucose (mg/dL) 187 H 281 H 160 H Random Glucose Calcium Iron TIBC % Saturation Ferritin Total Bilirubin AST ALT Alkaline Phosphatase Lactate Dehydrogenase Total Protein Albumin Globulin Albumin/Globulin Ratio Vitamin B12 Folate Hepatitis A IgM Ab Hep Bs Antigen Hep B Core IgM Ab Hepatitis C Antibody Blood Type Antibody Screen Crossmatch BBK History Checked 02/01/17 02/01/17 02/01/17 06:10 06:10 06:10 WBC 3.3 L RBC 2.59 L Hgb 7.1 L D Hct 21.3 L MCV 82.2 MCH 27.4 MCHC 33.3 RDW 15.6 H Plt Count 70 L MPV 11.8 H Baso # Software Reverse Engineer Neutrophils % (Manual) 73 H Band Neutrophils % 2 Lymphocytes % (Manual) 13 L Monocytes % (Manual) 11 H Metamyelocytes % 1 Platelet Evaluation Low Large Platelets Present Sodium 135 Potassium 3.4 L Chloride 105 Carbon Dioxide 18 L Anion Gap 15 BUN 35 H Creatinine 1.1 Est GFR ( Amer) 59 Est GFR (Non-Af Amer) 49 POC Glucose (mg/dL) Random Glucose 113 H Calcium 8.6 Iron 30 L TIBC 205 L % Saturation 15 L Ferritin 753.0 Total Bilirubin 0.3 AST 71 H ALT 73 H Alkaline Phosphatase 179 H Lactate Dehydrogenase 389 Total Protein 6.3 Albumin 3.1 Globulin 3.2 Albumin/Globulin Ratio 1.0 L Vitamin B12 > 1000 H Folate > 20.0 Hepatitis A IgM Ab Hep Bs Antigen Hep B Core IgM Ab Hepatitis C Antibody Blood Type Antibody Screen Crossmatch BBK History Checked 02/01/17 02/01/17 02/01/17 07:30 08:30 08:30 WBC RBC Hgb 7.0 L Hct 21.1 L MCV MCH MCHC RDW Plt Count MPV Baso # Neutrophils % (Manual) Band Neutrophils % Lymphocytes % (Manual) Monocytes % (Manual) Metamyelocytes % Platelet Evaluation Large Platelets Sodium Potassium Chloride Carbon Dioxide Anion Gap BUN Creatinine Est GFR ( Amer) Est GFR (Non-Af Amer) POC Glucose (mg/dL) 115 H Random Glucose Calcium Iron TIBC % Saturation Ferritin Total Bilirubin AST ALT Alkaline Phosphatase Lactate Dehydrogenase Total Protein Albumin Globulin Albumin/Globulin Ratio Vitamin B12 Folate Hepatitis A IgM Ab Hep Bs Antigen Hep B Core IgM Ab Hepatitis C Antibody Blood Type B POSITIVE Antibody Screen Negative Crossmatch See Detail BBK History Checked Patient has bt 02/01/17 02/01/17 02/01/17 11:36 15:58 21:41 WBC RBC Hgb Hct MCV MCH MCHC RDW Plt Count MPV Baso # Neutrophils % (Manual) Band Neutrophils % Lymphocytes % (Manual) Monocytes % (Manual) Metamyelocytes % Platelet Evaluation Large Platelets Sodium Potassium Chloride Carbon Dioxide Anion Gap BUN Creatinine Est GFR ( Amer) Est GFR (Non-Af Amer) POC Glucose (mg/dL) 284 H 131 H 182 H Random Glucose Calcium Iron TIBC % Saturation Ferritin Total Bilirubin AST ALT Alkaline Phosphatase Lactate Dehydrogenase Total Protein Albumin Globulin Albumin/Globulin Ratio Vitamin B12 Folate Hepatitis A IgM Ab Hep Bs Antigen Hep B Core IgM Ab Hepatitis C Antibody Blood Type Antibody Screen Crossmatch BBK History Checked Attending/Attestation - Attestation I have personally seen and examined this patient.: Yes I have fully participated in the care of the patient.: Yes I have reviewed all pertinent clinical information: Yes
[2017-02-01] MEDS ORDERED: Barium Sulfate Susp 2.1% w/v, 2.0% w/w 450 mL Bottle PO ONE (11:44)
[2017-02-01 13:21] LABS: FOLATE > 20.0 ng/mL
[2017-02-01 15:46] LABS: HEPATITIS B SURFACE AG NEGATIVE (NEGATIVE)
[2017-02-01 15:52] LABS: HEPATITIS A IGM NEGATIVE (NEGATIVE); HEPATITIS B CORE AB NEGATIVE (NEGATIVE)
[2017-02-01 16:04] LABS: HEPATITIS C ANTIBODY NEGATIVE (NEGATIVE)
--- NOTE | 2017-02-02 00:06 | CP.PCM.CON ---
History of Present Illness - History of Present Illness History of Present Illness: Ms. Fallon is a 71 year old female admitted with fatigue and severe anemia. She felt weak for past few weeks. She has pancytopenia on CBC. She has history of breast cancer treated 4 years ago with lumpectomy, chemo and radiation to right breast. She is complaining of memory loss. She could not tell me where she was treated for breast cancer. History was obtained from telephonically. Denies bony pain. No chest pain. Review of Systems - Constitutional Constitutional: Anorexia, Fatigue, Malaise, Weakness - EENT Eyes: absent: As Per HPI, Blind Spots, Blurred Vision, Change in Vision, Decreased Night Vision, Diplopia, Discharge, Dry Eye, Exophthalmos, Floaters, Irritation, Itchy Eyes, Loss of Peripheral Vision, Pain, Photophobia, Requires Corrective Lenses, Sees Flashes, Spots in Vision, Tunnel Vision, Other Visual Disturbances, Loss of Vision, Other Nose/Mouth/Throat: absent: As Per HPI, Epistaxis, Nasal Congestion, Nasal Discharge, Nasal Obstruction, Nasal Trauma, Nose Pain, Post Nasal Drip, Sinus Pain, Sinus Pressure, Bleeding Gums, Change in Voice, Dental Pain, Dry Mouth, Dysphagia, Halitosis, Hoarsness, Lip Swelling, Mouth Lesions, Mouth Pain, Odynophagia, Sore Throat, Throat Swelling, Tongue Swelling, Facial Pain, Neck Pain, Neck Mass, Other - Breasts Breasts: As Per HPI - Cardiovascular Cardiovascular: absent: As Per HPI, Acrocyanosis, Chest Pain, Chest Pain at Rest , Chest Pain with Activity, Claudication, Diaphoresis, Dyspnea, Dyspnea on Exertion, Edema, Irregular Heart Rhythm, Pain Radiating to Arm/Neck/Jaw, Leg Edema, Leg Ulcers, Lightheadedness, Orthopnea, Palpitations, Paroxysmal Nocturnal Dyspnea, Pedal Edema, Radiating Pain, Rapid Heart Rate, Slow Heart Rate, Syncope, Other - Respiratory Respiratory: absent: As Per HPI, Cough, Dyspnea, Hemoptysis, Dyspnea on Exertion , Wheezing, Snoring, Stridor, Pain on Inspiration, Chest Congestion, Excessive Mucous Production, Change in Mucous Color, Pain with Coughing, Other - Gastrointestinal Gastrointestinal: absent: As Per HPI, Abdominal Pain, Belching, Bloating, Change in Bowel Habits, Change in Stool Character, Coffee Ground Emesis, Constipation, Cramping, Diarrhea, Dyspepsia, Dysphagia, Early Satiety, Excessive Flatus, Fecal Incontinence, Heartburn, Hematemesis, Hematochezia, Loose Stools, Melena, Nausea, Odynophagia, Temesmus, Vomiting, Other - Genitourinary Genitourinary: absent: As Per HPI, Change in Urinary Stream, Difficulty Urinating, Dysuria, Flank Pain, Hematuria, Pyuria, Nocturia, Urinary Incontinence, Urinary Frequency, Urinary Hesitance, Urinary Urgency, Voiding Freq/Small Amts, Freq UTI, Hx Renal/Bladder Calculi, Hx /Renal Surgery, Bladder Distension, Other - Menstruation Menstruation: absent: As Per HPI, Amenorrhea, Amenorrhea/ Control, Currently Menstual, Cycle <21 Days, Cycle >35 Days, Cycle Variable, Menses 1-7 Days, Menses >/= 8 Days, Menses Variable, Cycle > 4 Weeks Between, No Menses for 6 Months, Heavy Menses, Light Menses, Normal Menses, Spotting Between Cycles , S/P Hysterectomy, Menopausal, Post Menopausal, Premenarche, Abnormal Vaginal Bleeding, Dysmenorrhea, Other - Musculoskeletal Musculoskeletal: absent: As Per HPI, Abnormal Gait, Arthralgias, Atrophy, Back Pain, Deformity, Joint Swelling, Limited Range of Motion, Loss of Height, Muscle Cramps, Muscle Weakness, Myalgias, Neck Pain, Numbness, Radiating Pain into Limb, Stiffness, Tingling, Other - Integumentary Integumentary: absent: As Per HPI, Acne, Alopecia, Bleeding Lesions, Change in Hair, Change in Nails, Change in Pigmentation, Changing Lesions, Dry Skin, Erythema, Furuncle, Hirsutism, Lesions, New Lesions, Non-Healing Lesions, Photosensitivity, Pruritus, Rash, Skin Pain, Skin Ulcer, Sores, Striae, Swelling , Unusual Bruising, Wounds, Jaundice, Other - Neurological Neurological: Memory Loss - Psychiatric Psychiatric: absent: As Per HPI, Abnormal Sleep Pattern, Anhedonia, Anxiety, Auditory Hallucinations, Behavioral Changes, Change in Appetite, Change in Libido, Confusion, Depression, Difficulty Concentrating, Hallucinations, Homicidal Ideation, Hopelessness, Irritability, Memory Loss, Mood Swings, Panic Attacks, Paranoia, Suicidal Ideation, Visual Hallucinations, Tactile Hallucinations, Other - Endocrine Endocrine: absent: As Per HPI, Change in Body Appearance, Change in Libido, Cold Intolorance, Deepening of Voice, Excessive Sweating, Fatigue, Flushing, Heat Intolorance, Increase in Ring/Shoe/Hat Size, Palpitations, Polydipsia, Polyphagia, Polyuria, Other - Hematologic/Lymphatic Hematologic: As Per HPI Past Patient History - Infectious Disease Hx of Infectious Diseases: None - Tetanus Immunizations Tetanus Immunization: Unknown - Past Social History Smoking Status: Never Smoked - CARDIAC Hx Hypertension: Yes - PULMONARY Hx Respiratory Disorders: No - NEUROLOGICAL Hx Neurological Disorder: No - HEENT Hx Cataracts: Yes (Bilateral surgery) - RENAL Hx Chronic Kidney Disease: No - ENDOCRINE/METABOLIC Hx Diabetes Mellitus Type 2: Yes - HEMATOLOGICAL/ONCOLOGICAL Hx Cancer: Yes (Breast Ca & SKin CA) Hx Chemotherapy: Yes Other/Comment: diagnosed with r breast ca 2 yrs ago had chemo and radiation - INTEGUMENTARY Hx Dermatological Problems: No - MUSCULOSKELETAL/RHEUMATOLOGICAL Hx Falls: No Hx Unsteady Gait: Yes (cane) - GASTROINTESTINAL Hx Gastroesophageal Reflux: Yes Other/Comment: egd/colonoscopy 06/11/14,hiatal hernia, esophagitis, gastric erosions, duodenitis, diverticulosis, redundant colon, polyps, hemorrhoids - GENITOURINARY/GYNECOLOGICAL Hx Genitourinary Disorders: No - PSYCHIATRIC Hx Emotional Abuse: No Hx Physical Abuse: No Hx Substance Use: No - SURGICAL HISTORY Hx Surgeries: Yes (t&a, r lumpectomy) Hx Cardiac Catheterization: Yes Hx Coronary Stent: Yes (ptca w/2 stents 2011) Hx Open Heart Surgery: Yes Other/Comment: R breast mastectomy, 10/16/16 abd aortagram and b/l lower ext runoff, angioplasty,stent - ANESTHESIA Hx Anesthesia: Yes Hx Anesthesia Reactions: No Hx Malignant Hyperthermia: No Meds Allergies/Adverse Reactions: Allergies Allergy/AdvReac Type Severity Reaction Status Date / Time No Known Allergies Allergy Verified 03/06/15 16:23 - Medications Medications: Current Medications Acetaminophen (Tylenol 325mg Tab) 650 mg PO Q4H PRN PRN Reason: Temp > 100.4*F. Last Admin: 02/01/17 10:46 Dose: 650 mg Acetaminophen (Tylenol 325mg Tab) 650 mg PO Q6H PRN PRN Reason: Other Aspirin (Ecotrin) 81 mg PO DAILY [facility] Last Admin: 02/01/17 09:35 Dose: Not Given Clopidogrel Bisulfate (Plavix) 75 mg PO QPM [facility] Last Admin: 02/01/17 17:33 Dose: 75 mg Ceftriaxone Sodium (Rocephin 1 Gram Ivpb) 1 gm in 100 mls @ 100 mls/hr IVPB DAILY [facility] PRN Reason: Protocol Last Admin: 02/01/17 09:18 Dose: 100 mls/hr Insulin Human Lispro (Humalog Med) 0 units SC ACHS [facility] PRN Reason: Protocol Last Admin: 02/01/17 21:58 Dose: Not Given Meclizine HCl (Antivert) 25 mg PO TID PRN PRN Reason: Dizziness Metoprolol Tartrate (Lopressor) 50 mg PO BID [facility] Last Admin: 02/01/17 17:34 Dose: Not Given Polyethylene Glycol (Miralax) 17 gm PO DAILY [facility] Last Admin: 02/01/17 09:22 Dose: 17 gm Potassium Chloride (K-Dur 20 Meq Er Tab) 20 meq PO BRK [facility] Last Admin: 02/01/17 10:46 Dose: 20 meq Physical Exam - Head Exam Head Exam: ATRAUMATIC, NORMAL INSPECTION, NORMOCEPHALIC - Eye Exam Eye Exam: Normal appearance Pupil Exam: NORMAL ACCOMODATION - ENT Exam ENT Exam: Mucous Membranes Moist, Normal Exam - Neck Exam Neck exam: Positive for: Normal Inspection - Respiratory Exam Respiratory Exam: Clear to Auscultation Bilateral, NORMAL BREATHING PATTERN - Cardiovascular Exam Cardiovascular Exam: REGULAR RHYTHM, +S1, +S2 - GI/Abdominal Exam GI & Abdominal Exam: Normal Bowel Sounds - Extremities Exam Extremities exam: Positive for: normal inspection - Back Exam Back exam: NORMAL INSPECTION - Psychiatric Exam Psychiatric exam: Normal Affect, Normal Mood - Skin Skin Exam: Intact, Normal Color, Warm Results - Vital Signs Recent Vital Signs: Last Vital Signs Temp 97.9 F 02/01/17 18:19 Pulse 54 L 02/01/17 18:19 Resp 18 02/01/17 18:19 BP 115/58 L 02/01/17 18:19 Pulse Ox 99 02/01/17 16:00 - Labs Result Diagrams: 02/01/17 08:30 02/01/17 06:10 Labs: Laboratory Results - last 24 hr 01/30/17 01/31/17 01/31/17 21:13 05:30 07:15 WBC RBC Hgb Hct MCV MCH MCHC RDW Plt Count MPV Baso # Neutrophils % (Manual) Band Neutrophils % Lymphocytes % (Manual) Monocytes % (Manual) Metamyelocytes % Platelet Evaluation Large Platelets Sodium Potassium Chloride Carbon Dioxide Anion Gap BUN Creatinine Est GFR ( Amer) Est GFR (Non-Af Amer) POC Glucose (mg/dL) 136 H 158 H Random Glucose Calcium Iron TIBC % Saturation Ferritin Total Bilirubin AST ALT Alkaline Phosphatase Lactate Dehydrogenase Total Protein Albumin Globulin Albumin/Globulin Ratio Vitamin B12 Folate Hepatitis A IgM Ab Negative Hep Bs Antigen Negative Hep B Core IgM Ab Negative Hepatitis C Antibody Negative Blood Type Antibody Screen Crossmatch BBK History Checked 01/31/17 01/31/17 01/31/17 11:06 16:03 21:49 WBC RBC Hgb Hct MCV MCH MCHC RDW Plt Count MPV Baso # Neutrophils % (Manual) Band Neutrophils % Lymphocytes % (Manual) Monocytes % (Manual) Metamyelocytes % Platelet Evaluation Large Platelets Sodium Potassium Chloride Carbon Dioxide Anion Gap BUN Creatinine Est GFR ( Amer) Est GFR (Non-Af Amer) POC Glucose (mg/dL) 187 H 281 H 160 H Random Glucose Calcium Iron TIBC % Saturation Ferritin Total Bilirubin AST ALT Alkaline Phosphatase Lactate Dehydrogenase Total Protein Albumin Globulin Albumin/Globulin Ratio Vitamin B12 Folate Hepatitis A IgM Ab Hep Bs Antigen Hep B Core IgM Ab Hepatitis C Antibody Blood Type Antibody Screen Crossmatch BBK History Checked 02/01/17 02/01/17 02/01/17 06:10 06:10 06:10 WBC 3.3 L RBC 2.59 L Hgb 7.1 L D Hct 21.3 L MCV 82.2 MCH 27.4 MCHC 33.3 RDW 15.6 H Plt Count 70 L MPV 11.8 H Baso # Emts Neutrophils % (Manual) 73 H Band Neutrophils % 2 Lymphocytes % (Manual) 13 L Monocytes % (Manual) 11 H Metamyelocytes % 1 Platelet Evaluation Low Large Platelets Present Sodium 135 Potassium 3.4 L Chloride 105 Carbon Dioxide 18 L Anion Gap 15 BUN 35 H Creatinine 1.1 Est GFR ( Amer) 59 Est GFR (Non-Af Amer) 49 POC Glucose (mg/dL) Random Glucose 113 H Calcium 8.6 Iron 30 L TIBC 205 L % Saturation 15 L Ferritin 753.0 Total Bilirubin 0.3 AST 71 H ALT 73 H Alkaline Phosphatase 179 H Lactate Dehydrogenase 389 Total Protein 6.3 Albumin 3.1 Globulin 3.2 Albumin/Globulin Ratio 1.0 L Vitamin B12 > 1000 H Folate > 20.0 Hepatitis A IgM Ab Hep Bs Antigen Hep B Core IgM Ab Hepatitis C Antibody Blood Type Antibody Screen Crossmatch BBK History Checked 02/01/17 02/01/17 02/01/17 07:30 08:30 08:30 WBC RBC Hgb 7.0 L Hct 21.1 L MCV MCH MCHC RDW Plt Count MPV Baso # Neutrophils % (Manual) Band Neutrophils % Lymphocytes % (Manual) Monocytes % (Manual) Metamyelocytes % Platelet Evaluation Large Platelets Sodium Potassium Chloride Carbon Dioxide Anion Gap BUN Creatinine Est GFR ( Amer) Est GFR (Non-Af Amer) POC Glucose (mg/dL) 115 H Random Glucose Calcium Iron TIBC % Saturation Ferritin Total Bilirubin AST ALT Alkaline Phosphatase Lactate Dehydrogenase Total Protein Albumin Globulin Albumin/Globulin Ratio Vitamin B12 Folate Hepatitis A IgM Ab Hep Bs Antigen Hep B Core IgM Ab Hepatitis C Antibody Blood Type B POSITIVE Antibody Screen Negative Crossmatch See Detail BBK History Checked Patient has bt 02/01/17 02/01/17 02/01/17 11:36 15:58 21:41 WBC RBC Hgb Hct MCV MCH MCHC RDW Plt Count MPV Baso # Neutrophils % (Manual) Band Neutrophils % Lymphocytes % (Manual) Monocytes % (Manual) Metamyelocytes % Platelet Evaluation Large Platelets Sodium Potassium Chloride Carbon Dioxide Anion Gap BUN Creatinine Est GFR ( Amer) Est GFR (Non-Af Amer) POC Glucose (mg/dL) 284 H 131 H 182 H Random Glucose Calcium Iron TIBC % Saturation Ferritin Total Bilirubin AST ALT Alkaline Phosphatase Lactate Dehydrogenase Total Protein Albumin Globulin Albumin/Globulin Ratio Vitamin B12 Folate Hepatitis A IgM Ab Hep Bs Antigen Hep B Core IgM Ab Hepatitis C Antibody Blood Type Antibody Screen Crossmatch BBK History Checked Assessment & Plan - Assessment and Plan (Free Text) Assessment: 1. Pancytopenia : differential include MDS, s/p chemo that increases the risk of MDS. Bone marrow infiltration with malignancy. She need PET scan for evaluation of Stage IV disease. 2. History of breast cancer treated 4 years ago. re-staging work up as out patient. 3. Severe anemia : s/p PRBC transfusion, iron studies showed iron deficiency. IV iron . GI consulted to r/o GI bleed. 4. Memory loss : MRI of brain to r/o mets. Discussed with the . Thank you DR. Sierra for allowing us to participate in her care. - Date & Time Date: 02/01/17 Time: 18:00
--- NOTE | 2017-02-02 02:12 | DS ---
HISTORY OF PRESENT ILLNESS: The patient is 71 years old seen and examined. States she feels lot better, looks pale, still feel tired. No nausea, vomiting, or diarrhea. Eating and tolerating. PHYSICAL EXAMINATION: VITAL SIGNS: She is afebrile, pulse 54, respirations 18 and blood pressure 109/53. LUNGS: Bilateral fair air flow. No rhonchi or crackles. HEART: S1 and S2 audible. ABDOMEN: Soft and nontender. No rebound. No guarding. NEUROLOGIC: The patient is awake and alert, communicative. EXTREMITIES: Moves all extremities. Bilateral leg, no edema. LABORATORY DATA: She had WBC 3.3, hemoglobin 7.1, hematocrit 21.3, platelet of 70. Follow up hemoglobin of 7 with hematocrit of 21. Chemistry; sodium 135, potassium 3.4, chloride 105, CO2 of 18, BUN 35, creatinine 1.1, blood sugar of 113, AST 71, ALT 73 and alk phos is 179. Her blood cultures are negative. She had abdominal sonogram done that showed splenomegaly all other organs are unremarkable. CT scan of the chest shows pulmonary nodule and left pleural effusion. ASSESSMENT: 1. Pancytopenia. 2. Generalized weakness. 3. Resolved renal insufficiency and dehydration. 4. Coronary artery disease, status post open heart surgery 2 years ago. 5. Iron-deficiency anemia. 6. Hypertension. 7. Abnormal LFTs. 8. History of weight loss. The patient never had colonoscopy done in the past. She states she was schedule to have colonoscopy as outpatient, but never happened. PLAN: The patient will receive 2 pack RBCs. GI input noted. She will be evaluated by Dr. Rodarte also. We will discuss with Dr. Lugo. The patient wants to go home today. After blood transfusion, she states she will have colonoscopy done as an outpatient. Aldo Sierra MD
[2017-02-02] MEDS ORDERED: Iohexol 240 (50 ml) ONE (03:52)
[2017-02-02] MEDS: Insulin Lispro (humaLOG) MEDIUM Coverage SC SCH ×3 (08:50→17:05)
--- NOTE | 2017-02-02 10:08 | CT ---
PROCEDURE: CT Abdomen and Pelvis without intravenous contrast HISTORY: anemia/wt loss COMPARISON: 2014. TECHNIQUE: Technique. Contrast Dose: Radiation dose: Total exam DLP = 552 mGy-cm. This CT exam was performed using one or more of the following dose reduction techniques: Automated exposure control, adjustment of the mA and/or kV according to patient size, and/or use of iterative reconstruction technique. FINDINGS: LOWER THORAX: Unremarkable. LIVER: Unremarkable. No gross lesion or ductal dilatation. GALLBLADDER AND BILE DUCTS: Gallstones. PANCREAS: Unremarkable. No gross lesion or ductal dilatation. SPLEEN: Unremarkable. ADRENALS: Unremarkable. No mass. KIDNEYS AND URETERS: Unremarkable. No hydronephrosis. No solid mass. VASCULATURE: Unremarkable. No aortic aneurysm. BOWEL: Short segment of questionable mural thickening along the distal descending colon which could represent underlying neoplasm or be secondary to compensatory muscular hypertrophy due to colonic diverticulosis. The appearance appears new since prior examination. Recommend correlation with colonoscopy. APPENDIX: Unremarkable. Normal appendix. PERITONEUM: Unremarkable. No free fluid. No free air. LYMPH NODES: Unremarkable. No enlarged lymph nodes. BLADDER: Unremarkable. REPRODUCTIVE: Calcified fibroid uterus.. BONES: No acute fracture. OTHER FINDINGS: None. IMPRESSION: Short segment of questionable mural thickening along the distal descending colon which could represent underlying neoplasm or be secondary to compensatory muscular hypertrophy due to colonic diverticulosis. The appearance appears new since prior examination. Recommend correlation with colonoscopy.
[2017-02-02] MEDS: POLYETHYLENE GLYCOL 3350 17 GM/Dose PACKET PO SCH (10:11)
[2017-02-02] MEDS: Potassium Chloride 20 mEq ER Tab PO SCH (10:11)
[2017-02-02] MEDS: cefTRIAXone 1 gm 1 GM/100 ML BAG IVPB SCH (10:11)
[2017-02-02 11:19] LABS: HEMOGLOBIN 10.3 gm/dL (12.0-16.0); MEAN CELL VOLUME 82.3 fL (80.0-105.0); MEAN PLATELET VOLUME 12.7 fl (7.0-11.0); PLATELET COUNT 89 10^3/uL (120.0-450.0); RBC 3.68 10^6/uL (3.5-6.1); RED CELL DISTRIBUTION WIDTH 15.1 % (11.5-14.5); WHITE BLOOD COUNT 5.6 10^3/ul (4.5-11.0)
[2017-02-02 11:24] LABS: ALB/GLOB RATIO 0.9 (1.1-1.8); ALBUMIN 3.2 g/dL (3.0-4.8); ALT/SGPT 56 U/L (7-56); AST/SGOT 42 U/L (15-39); BLOOD UREA NITROGEN 21 mg/dL (7-21); CALCIUM 8.7 mg/dL (8.4-10.5); GFR AFRICAN-AMERICAN > 60; GFR NON-AFRICAN AMERICAN > 60
[2017-02-02 11:49] LABS: BAND 9 % (0-2); EOSINOPHIL 1 % (0.0-3.0); LARGE PLATELETS PRESENT; LYMPHOCYTE 9 % (22.0-35.0); METAMYELOCYTE 1 %; MONOCYTE 1 % (1.0-6.0); NEUTROPHIL 79 % (50.0-70.0); PLATELET ESTIMATE LOW (NORMAL)
[2017-02-02] MEDS ORDERED: Propofol 10 mg/ml Inj (20 ML) ONE (13:41)
[2017-02-02] MEDS ORDERED: Sodium Chloride 0.9% 1,000 ML IV SCH ×2 (13:45→14:15)
[2017-02-02 17:42] VITALS: BP 142/64; PULSE 57; RESP 18; TEMP 97.6; O2SAT 100
--- NOTE | 2017-02-03 04:00 | DS ---
HOSPITAL COURSE: The patient is 71 years old, seen and examined, sitting in chair, seems to be comfortable, anxious to go home. She states she feel fine. PHYSICAL EXAMINATION: VITAL SIGNS: She is afebrile, pulse 58, respirations 20 and blood pressure 137/80. LUNGS: Bilateral fair airflow. No rhonchi or crackle. HEART: S1 and S2 audible. ABDOMEN: Soft and nontender. No rebound. No guarding. NEUROLOGIC: She is awake and alert, communicative, able to ambulate. EXTREMITIES: Bilateral legs, no edema. LABORATORY DATA: WBC 5.6, hemoglobin 10.3, hematocrit 30.3 and platelet of 89. Chemistry; sodium 135, potassium 3.6, chloride 105, CO2 of 18, BUN 21, creatinine 0.9 and blood sugar of 132. CT scan of the abdomen and pelvis was done also that shows mural thickening along the distal descending colon, which could represent underlying neoplasm or muscular hypertrophy. ASSESSMENT: 1. Renal insufficiency and dehydration. 2. Symptomatic anemia, etiology still unclear, however, CT scan of the abdomen shows mural thickening need to have colonic malignancy ruled out. 3. History of syndrome for that the patient was treated in [place]. 4. History of carcinoma of the breast. 5. Coronary artery disease, status post open heart surgery. 6. Mild dementia. 7. Generalized weakness. 8. Pancytopenia. 9. History of weight loss. PLAN: I had a long discussion with the patient's son, Zeyad Fallon and explained to him that the patient's mom has iron-deficiency anemia we must rule out underlying malignancy. She definitely need endoscopy and colonoscopy, but the patient is anxious to go home that can be arranged as outpatient and he was made aware that this is extremely important to have this workup done to rule out the reason for her pancytopenia. He understands, his all questions were answered and he will make arrangement. He will followup with Dr. Magana and have workup done as an outpatient, so the patient will be discharge home. She is clinically stable to be discharge today. Aldo Sierra MD
--- NOTE | 2017-02-05 15:24 | CP.PCM.PN ---
Subjective - Date & Time of Evaluation Date of Evaluation: 02/02/17 Time of Evaluation: 02:00 - Subjective Subjective: c/o epigastric pain same LEVEL. seen in SDS Objective - Vital Signs/Intake and Output Vital Signs (last 24 hours): Temp Pulse Resp BP Pulse Ox 97.5 F L 55 L 19 136/63 97 02/02/17 14:41 02/02/17 14:41 02/02/17 14:41 02/02/17 14:41 02/02/17 14:41 Intake and Output: 02/02/17 02/02/17 06:59 18:59 Intake Total 500 360 Balance 500 360 - Medications Medications: Current Medications Acetaminophen (Tylenol 325mg Tab) 650 mg PO Q4H PRN PRN Reason: Temp > 100.4*F. Last Admin: 02/01/17 10:46 Dose: 650 mg Acetaminophen (Tylenol 325mg Tab) 650 mg PO Q6H PRN PRN Reason: Other Aspirin (Ecotrin) 81 mg PO DAILY [facility] Last Admin: 02/02/17 10:10 Dose: Not Given Clopidogrel Bisulfate (Plavix) 75 mg PO QPM [facility] Last Admin: 02/01/17 17:33 Dose: 75 mg Ceftriaxone Sodium (Rocephin 1 Gram Ivpb) 1 gm in 100 mls @ 100 mls/hr IVPB DAILY [facility] PRN Reason: Protocol Last Admin: 02/02/17 10:11 Dose: 100 mls/hr Sodium Chloride (Sodium Chloride 0.9%) 1,000 mls @ 100 mls/hr IV .Q10H [facility] Sodium Chloride (Sodium Chloride 0.9%) 1,000 mls @ 100 mls/hr IV .Q10H [facility] Insulin Human Lispro (Humalog Med) 0 units SC ACHS [facility] PRN Reason: Protocol Last Admin: 02/02/17 12:03 Dose: Not Given Meclizine HCl (Antivert) 25 mg PO TID PRN PRN Reason: Dizziness Metoprolol Tartrate (Lopressor) 50 mg PO BID [facility] Last Admin: 02/02/17 10:10 Dose: 50 mg Polyethylene Glycol (Miralax) 17 gm PO DAILY [facility] Last Admin: 02/02/17 10:11 Dose: Not Given Potassium Chloride (K-Dur 20 Meq Er Tab) 20 meq PO BRK [facility] Last Admin: 02/02/17 10:11 Dose: 20 meq - Labs Labs: 02/02/17 11:00 02/02/17 11:00 PT 11.8 Seconds (9.9-11.8) 01/30/17 15:00 INR 1.09 (0.93-1.08) H 01/30/17 15:00 APTT 32.8 Seconds (23.7-30.8) H 01/30/17 15:00 - Constitutional Appears: Non-toxic, No Acute Distress - Head Exam Head Exam: ATRAUMATIC, NORMOCEPHALIC - Eye Exam Eye Exam: EOMI, Scleral icterus - ENT Exam ENT Exam: Mucous Membranes Moist - Neck Exam Neck Exam: absent: Lymphadenopathy, Thyromegaly - Respiratory Exam Respiratory Exam: NORMAL BREATHING PATTERN. absent: Accessory Muscle Use - Cardiovascular Exam Cardiovascular Exam: REGULAR RHYTHM, +S1, +S2 - GI/Abdominal Exam GI & Abdominal Exam: Soft, Tenderness, Normal Bowel Sounds Additional comments: tenderness present epigastric and ruq area. No rebound or guardinh - Extremities Exam Extremities Exam: absent: Calf Tenderness, Tenderness - Skin Skin Exam: absent: Cyanosis, Diaphoretic Assessment and Plan - Assessment and Plan (Free Text) Assessment: 1. Obstructive jaundice 2. metasatic adenocarcinoma 3. Pancreatic Plan: discussed with patients son and patient. Risk benefits and alternatives explained .Informed consent obtained for EGD.
== END 2017-02-02 18:32 | disposition home or self-care (01) | DRG 809 ==
LOC: ED 13:32 → ERH 16:14 → 2RNO 20:42 → 3RSO 02-01 14:42
PROVIDERS: ADMIT Internal Medicine; ATTEND Internal Medicine
PROC: 30233N1 Transfusion of Nonautologous Red Blood Cells into Peripheral Vein, Percutaneous Approach (ICD-10-PCS; 2017-02-01)
PROC: 0DJ08ZZ Inspection of Upper Intestinal Tract, Via Natural or Artificial Opening Endoscopic (ICD-10-PCS; principal; 2017-02-02 12:00)
DX: D61.818 Other pancytopenia (principal); J90 Pleural effusion, not elsewhere classified; K26.9 Duodenal ulcer, unspecified as acute or chronic, without hemorrhage or perforation; K25.9 Gastric ulcer, unspecified as acute or chronic, without hemorrhage or perforation; E86.0 Dehydration; E83.42 Hypomagnesemia; E11.9 Type 2 diabetes mellitus without complications; F03.90 Unspecified dementia, unspecified severity, without behavioral disturbance, psychotic disturbance, mood disturbance, and anxiety; D50.9 Iron deficiency anemia, unspecified; I10 Essential (primary) hypertension; E87.6 Hypokalemia; I25.10 Atherosclerotic heart disease of native coronary artery without angina pectoris; R79.89 Other specified abnormal findings of blood chemistry; R63.4 Abnormal weight loss; E78.5 Hyperlipidemia, unspecified; N28.9 Disorder of kidney and ureter, unspecified; K59.00 Constipation, unspecified; Z85.3 Personal history of malignant neoplasm of breast; Z68.22 Body mass index [BMI] 22.0-22.9, adult; Z90.11 Acquired absence of right breast and nipple; Z79.82 Long term (current) use of aspirin; Z95.1 Presence of aortocoronary bypass graft; Z79.84 Long term (current) use of oral hypoglycemic drugs; Z86.010 Personal history of colon polyps; Z92.21 Personal history of antineoplastic chemotherapy; Z92.3 Personal history of irradiation

== ENCOUNTER 2017-02-09 11:07 | Day surgery (SDC) | payer MEDICARE, BC ==
[2017-02-07 11:08] VITALS: BMI 23.6
[2017-02-09] MEDS ORDERED: Propofol 10 mg/ml Inj (20 ML) ONE (12:25)
[2017-02-09] MEDS ORDERED: Sodium Chloride 0.9% 1,000 ML IV SCH (13:45)
[2017-02-09 14:38] VITALS: BP 133/74; PULSE 57; RESP 15; TEMP 97.7; O2SAT 100
== END 2017-02-09 15:38 | disposition home or self-care (01) ==
LOC: ENDO 11:07
PROVIDERS: ATTEND Internal Medicine Gastroenterology
DX: K25.9 Gastric ulcer, unspecified as acute or chronic, without hemorrhage or perforation (principal); K26.9 Duodenal ulcer, unspecified as acute or chronic, without hemorrhage or perforation; K29.50 Unspecified chronic gastritis without bleeding; K29.80 Duodenitis without bleeding; D12.0 Benign neoplasm of cecum; D12.3 Benign neoplasm of transverse colon; K62.1 Rectal polyp; D50.9 Iron deficiency anemia, unspecified; K63.5 Polyp of colon; K57.30 Diverticulosis of large intestine without perforation or abscess without bleeding; K64.8 Other hemorrhoids; E11.9 Type 2 diabetes mellitus without complications; I25.10 Atherosclerotic heart disease of native coronary artery without angina pectoris; I10 Essential (primary) hypertension; E78.5 Hyperlipidemia, unspecified
CPT/HCPCS: 43239; 45380; 45381; 45385; 88305; 88342; J2001; J2704; J3010; J7040 ×2

== ENCOUNTER 2017-03-06 12:26 | Inpatient (IN) | payer MEDICARE, BC ==
[2017-03-06] MEDS ORDERED: Sodium Chloride 0.9% 500 ML IV STA (13:15)
--- NOTE | 2017-03-06 13:25 | ED PDOC ---
Arrival/HPI - General Historian: Patient, Spouse <Berry Izaguirre - Last Filed: 03/06/17 14:52> <Blaise Gann - Last Filed: 03/06/17 15:21> - General Chief Complaint: Dizziness/Lightheaded Time Seen by Provider: 03/06/17 12:37 - History of Present Illness Narrative History of Present Illness (Text): 03/06/17 13:20 This is a 71 year old female with PMHx HTN, HLD, CAD s/p CABG x2, PVD, Iron deficiency anemia, gastric and duodenal ulcers, multiple polyps in colon, Diabetes, right sided breast cancer s/p mastectomy who presents with complaint of dizziness. Patient first experienced it last night. Patient notes that turning her head to the left and right exacerbates the sensation. Denies LOC. Patient states that she feels that the room is spinning and admits to fatigue. Patient denies other acute complaints. She is not currently experiencing any chest pain or SOB. Patient denies changes in stool character/frequency. Patient denies hematuria and hematochezia stating that her stools are of normal color. PMHx: HTN, HLD, CAD s/p CABG x2, PVD, Iron deficiency anemia, gastric and duodenal ulcers, multiple polyps in colon, Diabetes, right sided breast cancer s /p mastectomy PSHx: CABG x 2 (most recently in 2013), right breast mastectomy, recent EGD and colonoscopy, Multiple vascular procedures for bilateral lower extremities including stenting Allergies: Denies Social: Denies tobacco, alcohol, drugs. 03/06/17 13:41 (Berry Izaguirre) Past Medical History - Provider Review Nursing Documentation Reviewed: Yes - Infectious Disease Hx of Infectious Diseases: None - Tetanus Immunization Tetanus Immunization: Unknown - Reproductive Menopause: Yes - Cardiac Hx Coronary Artery Disease: Yes Hx Circulatory Problems: Yes Hx Hyperlipemia: Yes Hx Hypertension: Yes Hx Pacemaker: No Hx Peripheral Vascular Disease: Yes - Pulmonary Hx Respiratory Disorders: No - Neurological Hx Paralysis: No - HEENT Hx Cataracts: Yes (Bilateral surgery) - Renal Hx Renal Disorder: No - Endocrine/Metabolic Hx Diabetes Mellitus Type 2: Yes - Hematological/Oncological Hx Blood Transfusions: Yes Hx Blood Transfusion Reaction: No - Integumentary Hx Dermatological Disorder: No - Musculoskeletal/Rheumatological Hx Musculoskeletal Disorders: No - Gastrointestinal Hx Gastroesophageal Reflux: Yes Hx Gastrointestinal Ulcer: Yes Other/Comment: egd/colonoscopy 06/11/14,hiatal hernia, esophagitis, gastric erosions, duodenitis, diverticulosis, redundant colon, polyps, hemorrhoids - Genitourinary/Gynecological Hx Genitourinary Disorders: No - Psychiatric Hx Emotional Abuse: No Hx Physical Abuse: No Hx Substance Use: No - Surgical History Hx Cardiac Catheterization: Yes Hx Coronary Artery Bypass Graft: Yes Hx Coronary Stent: Yes (ptca w/2 stents 2011) Hx Open Heart Surgery: Yes Other/Comment: R breast mastectomy, 10/16/16 abd aortagram and b/l lower ext runoff, angioplasty,stent - Anesthesia Hx Anesthesia Reactions: No Hx Malignant Hyperthermia: No - Suicidal Assessment Feels Threatened In Home Enviroment: No <Berry Izaguirre - Last Filed: 03/06/17 14:52> Family/Social History - Physician Review Nursing Documentation Reviewed: Yes Family/Social History: No Known Family HX Smoking Status: Never Smoked Hx Alcohol Use: No Hx Substance Use: No Hx Substance Use Treatment: No <Berry Izaguirre - Last Filed: 03/06/17 14:52> Allergies/Home Meds <Berry Izaguirre - Last Filed: 03/06/17 14:52> <Blaise Gann - Last Filed: 03/06/17 15:21> Allergies/Adverse Reactions: Allergies No Known Allergies Allergy (Verified 03/06/15 16:23) Home Medications: Home Meds Medication Instructions Recorded Confirmed Rosuvastatin Calcium [Crestor] 5 mg PO DAILY 09/20/15 03/06/17 Losartan/Hydrochlorothiazide 1 tab PO DAILY 10/11/16 03/06/17 [Losartan-Hctz 50-12.5 mg Tab] Metformin HCl [Glucophage] 500 mg PO BID 10/11/16 03/06/17 Metoprolol Tartrate [Lopressor] 50 mg PO BID 10/11/16 03/06/17 Mometasone Furoate [Nasonex] 0.05 mg NS DAILY PRN 10/11/16 03/06/17 hydrALAZINE [Apresoline] 25 mg PO BID 10/11/16 03/06/17 Anastrozole [Arimidex 1 mg Tab] 1 tab PO DAILY 03/06/17 03/06/17 Clopidogrel [Plavix] 1 tab PO DAILY 03/06/17 03/06/17 Moon-3 Fatty Acids/Fish Oil 2 cap PO BID 03/06/17 03/06/17 [Moon 3 Fish Oil Softgel] Review of Systems - Review of Systems Constitutional: Fatigue Eyes: Normal ENT: Normal Respiratory: Normal Cardiovascular: Normal Gastrointestinal: Normal Genitourinary Female: Normal Musculoskeletal: Normal Skin: Normal Neurological: Dizziness Endocrine: Normal Hemo/Lymphatic: Normal Psychiatric: Normal <Berry Izaguirre - Last Filed: 03/06/17 14:52> Physical Exam Temperature: Afebrile Blood Pressure: Normal Pulse: Bradycardic Respiratory Rate: Normal Appearance: Positive for: Well-Appearing, Non-Toxic Pain Distress: None Mental Status: Positive for: Alert and Oriented X 3 Finger Stick Blood Glucose: 168 - Systems Exam Head: Present: Atraumatic, Normocephalic Pupils: Present: Sluggish Extroacular Muscles: Present: EOMI Conjunctiva: Present: Normal Mouth: Present: Moist Mucous Membranes Neck: Present: Normal Range of Motion Respiratory/Chest: Present: Clear to Auscultation, Good Air Exchange. No: Accessory Muscle Use Cardiovascular: Present: Normal S1, S2, Bradycardic. No: Murmurs Abdomen: Present: Tenderness (right upper quadrant), Normal Bowel Sounds. No: Distention Upper Extremity: Present: Normal Inspection, NORMAL PULSES. No: Edema Lower Extremity: Present: Normal Inspection, Other (decreased skin turgor bilaterally). No: Edema Neurological: Present: GCS=15, CN II-XII Intact Skin: Present: Warm, Dry, Normal Color Psychiatric: Present: Alert, Oriented x 3 <Berry Izaguirre - Last Filed: 03/06/17 14:52> Vital Signs Reviewed: Yes <Blaise Gann - Last Filed: 03/06/17 15:21> Vital Signs Temp Pulse Resp BP Pulse Ox 03/06/17 15:04 61 18 153/62 H 100 03/06/17 12:50 98.2 F 54 L 18 118/63 100 03/06/17 12:43 98.2 F 54 L 16 118/63 99 Medical Decision Making - EKG Interpretation Interpreted by ED Physician: Yes Type: 12 lead EKG <Berry Izaguirre - Last Filed: 03/06/17 14:52> <Blaise Gann - Last Filed: 03/06/17 15:21> ED Course and Treatment: 03/06/17 13:29 EKG, CBC, CMP, Mag, Coags, Lipase, CXR portable, Head CT w.o. contrast, UA, Cardiac ISO Normal Saline 500 cc bolus Meclizine 12.5 mg PO 03/06/17 14:45 Dr. Landaverde agreed to admit for telemetry observation overnight. (Berry Izaguirre) A 71 year old male with dizziness. In agreement with resident note, which includes further HPI details. Patient was seen and evaluated with resident, came up with plan and treatment together. 03/06/17 15:16 Patient with multiple risk factors for cardiovascular disease and dizziness on presentation that is vertiginous in nature. Patient given IVF and meclizine without any improvement and continues to feel dizzy and off balance on standing. No cerebellar signs on exam. CT brain showing volume loss and lacunar infarcts. Given the risk factors and persistence of symptoms as well as CT findings, patient will need further observation, MRI, and neuro eval. Discussed with Dr. Landaverde, covering Dr. Sierra. (Blaise Gann) - Lab Interpretations Lab Results: 03/06/17 13:35 03/06/17 13:35 Lab Results 03/06/17 13:35: Sodium 140, Potassium 4.2, Chloride 100, Carbon Dioxide 27, Anion Gap 17, BUN 31 H, Creatinine 1.3, Est GFR ( Amer) 49, Est GFR (Non- Af Amer) 40, Random Glucose 111 H, Calcium 10.6 H, Magnesium 1.9, Total Bilirubin 0.5, AST 34, ALT 23, Alkaline Phosphatase 60, Lactate Dehydrogenase 260 L, Total Creatine Kinase < 20 L, Troponin I < 0.01, Total Protein 8.1, Albumin 4.4, Globulin 3.7, Albumin/Globulin Ratio 1.2, Lipase 238 03/06/17 13:35: PT 10.8, INR 1.00, APTT 25.2 03/06/17 13:35: WBC 5.1, RBC 3.53, Hgb 10.0 L, Hct 29.4 L, MCV 83.3, MCH 28.3, MCHC 34.0, RDW 15.4 H, Plt Count 158, MPV 10.1, Gran % 59.9, Lymph % (Auto) 18.2 L, [place] % (Auto) 21.5 H, Eos % (Auto) 0.4 L, Baso % (Auto) 0.0, Gran # 3.06 , Lymph # 0.9 L, [place] # 1.1 H, Eos # 0.0, Baso # 0.00, Neutrophils % (Manual) 61 , Lymphocytes % (Manual) 22, Atypical Lymphs % 3 H, Monocytes % (Manual) 9 H, Eosinophils % (Manual) 1, Metamyelocytes % 2, Myelocytes % 2, Hypochromasia 1+, Anisocytosis (manual) 1+, Microcytosis (manual) 1+, Ovalocytes Slight 03/06/17 12:50: POC Glucose (mg/dL) 168 H - RAD Interpretation Radiology Orders: 03/06/17 13:12 CHEST PORTABLE [RAD] Stat 03/06/17 13:15 Brain [HEAD W/O CONTRAST] [CT] Stat - EKG Interpretation EKG Interpretation (Text): 03/06/17 14:47 Sinus bradycardia (Gayed,Berry S) 03/06/17 15:20 sinus maria del carmen @ 53; normal intervals; normal axis; no ST/T changes. (Blaise Gann) - Medication Orders Current Medication Orders: Discontinued Medications Sodium Chloride (Sodium Chloride 0.9%) 500 mls @ 999 mls/hr IV .Q31M STA Stop: 03/06/17 13:45 Last Admin: 03/06/17 14:05 Dose: 999 mls/hr Meclizine HCl (Antivert) 12.5 mg PO STAT STA Stop: 03/06/17 13:16 Last Admin: 03/06/17 14:07 Dose: 12.5 mg - PA / SEARCH ADVERTISING STRATEGIST / Resident Statement MIKE has reviewed & agrees with the documentation as recorded. / has examined the patient and agrees with the treatment plan. <Blaise Gann - Last Filed: 03/06/17 15:21> Disposition/Present on Arrival - Present on Arrival Any Indicators Present on Arrival: No History of DVT/PE: No History of Uncontrolled Diabetes: No Urinary Catheter: No History of Decub. Ulcer: No History Surgical Site Infection Following: None - Disposition Have Diagnosis and Disposition been Completed?: Yes Disposition Time: 14:30 Patient Plan: Observation, Telemetry <Berry Izaguirre - Last Filed: 03/06/17 14:52> <Blaise Gann - Last Filed: 03/06/17 15:21> - Disposition Diagnosis: Vertigo, Dizziness Disposition: HOSPITALIZED Patient Problems: Current Active Problems Problem Status Onset Vertigo Acute Condition: STABLE
[2017-03-06 13:51] LABS: EOS % 0.4 % (1.5-5.0); GRAN # 3.06 (1.4-6.5); GRAN % 59.9 % (50.0-68.0); HEMATOCRIT 29.4 % (36.0-48.0); LYMPH # 0.9 (1.2-3.4); LYMPH % 18.2 % (22.0-35.0); MEAN CELL VOLUME 83.3 fl (80.0-105.0); MEAN CORPUSCULAR HEMOGLOBIN 28.3 pg (25.0-35.0); MEAN PLATELET VOLUME 10.1 fl (7.0-11.0); MONO # 1.1 (0.1-0.6); MONO % 21.5 % (1.0-6.0); PLATELET COUNT 158 10^3/uL (120.0-450.0); RED CELL DISTRIBUTION WIDTH 15.4 % (11.5-14.5); WHITE BLOOD COUNT 5.1 10^3/ul (4.5-11.0)
[2017-03-06 14:04] LABS: PARTIAL THROMBOPLASTIN TIME 25.2 Seconds (23.7-30.8)
[2017-03-06 14:05] LABS: ALB/GLOB RATIO 1.2 (1.1-1.8); ALKALINE PHOSPHATASE 60 U/L (38-133); ALT/SGPT 23 U/L (7-56); AST/SGOT 34 U/L (15-39); BILIRUBIN,TOTAL 0.5 mg/dL (0.2-1.3); BLOOD UREA NITROGEN 31 mg/dL (7-21); CALCIUM 10.6 mg/dL (8.4-10.5); CARBON DIOXIDE 27 mmol/L (21-33); CHLORIDE 100 mmol/L (98-107); GFR AFRICAN-AMERICAN 49; GLUCOSE,RANDOM 111 mg/dL (70-110); LIPASE 238 U/L (23-300); MAGNESIUM 1.9 mg/dL (1.7-2.2); POTASSIUM 4.2 mmol/L (3.6-5.0); SODIUM 140 mmol/L (132-148); TOTAL PROTEIN 8.1 g/dL (5.8-8.3)
--- NOTE | 2017-03-06 14:12 | CT ---
PROCEDURE: CT HEAD WITHOUT CONTRAST. HISTORY: Dizziness COMPARISON: 09/20/2015. TECHNIQUE: Axial computed tomography images were obtained through the head/brain without intravenous contrast. Radiation dose: Total exam DLP = 764.32 cm mGy-cm. This CT exam was performed using one or more of the following dose reduction techniques: Automated exposure control, adjustment of the mA and/or kV according to patient size, and/or use of iterative reconstruction technique. FINDINGS: HEMORRHAGE: No intracranial hemorrhage. BRAIN: There are old lacunar infarctions in the right patel radiata and basal ganglia. There are mild chronic microangiopathic changes. There is no mass, mass effect or abnormal extra-axial fluid collection. VENTRICLES: There is moderate global parenchymal volume loss and proportionate enlargement of the ventricles and cortical sulci, slightly advanced for the patient's age. There are coarse atherosclerotic calcifications in the cavernous carotid arteries. CALVARIUM: The skull base and calvarium are normal PARANASAL SINUSES: Predominantly clear. MASTOID AIR CELLS: Predominantly clear. OTHER FINDINGS: None. IMPRESSION: No acute intracranial abnormality. Old lacunar infarctions in the right patel radiata and basal ganglia. Mild chronic microangiopathic changes. Moderate global parenchymal volume loss, slightly advanced for the patient's age.
--- NOTE | 2017-03-06 14:14 | RAD ---
HISTORY: dizzy COMPARISON: 01/30/2017 FINDINGS: LUNGS: The lungs are well inflated. There is stable appearance of a running suture in the right lower lobe. No focal consolidation. PLEURA: There is persistent blunting of the right costophrenic angle suggestive of mild pleural thickening. No significant pleural effusion identified, no pneumothorax apparent. CARDIOVASCULAR: The heart is normal in size. Status post CABG. OSSEOUS STRUCTURES: No significant abnormalities. VISUALIZED UPPER ABDOMEN: Normal. OTHER FINDINGS: There are multiple surgical clips in the right axilla. IMPRESSION: No active pulmonary disease. Chronic changes in the right lungs with right pleural thickening.
[2017-03-06 14:20] LABS: TROPONIN I < 0.01 ng/mL
[2017-03-06 14:56] LABS: ATYPICAL LYMPHOCYTE 3 % (0.0-0.0); EOSINOPHIL 1 % (0.0-3.0)
[2017-03-06 14:57] LABS: METAMYELOCYTE 2 %; MYELOCYTE 2 %; NEUTROPHIL 61 % (50.0-70.0)
[2017-03-06 14:58] LABS: ANISOCYTOSIS 1+; HYPOCHROMIA 1+; MICROCYTOSIS 1+; OVALOCYTES SLIGHT
[2017-03-06 15:34] LABS: PH,URINE 6.5 (4.7-8.0); URINE BILIRUBIN NEGATIVE (NEGATIVE); URINE BLOOD NEGATIVE (NEGATIVE); URINE GLUCOSE (UA) NEGATIVE (NEGATIVE); URINE KETONE NEGATIVE (NEGATIVE); URINE LEUKOCYTE ESTERASE TRACE Leu/uL (NEGATIVE); URINE PROTEIN NEGATIVE mg/dL (<30 mg/dL); URINE UROBILINOGEN 0.2 E.U./dL (<1 E.U./dL)
[2017-03-06 15:37] LABS: URINE APPEARANCE CLEAR (CLEAR); URINE COLOR YELLOW (YELLOW)
[2017-03-06 15:47] LABS: URINE RBC 0 - 2 /hpf (0-2)
[2017-03-06] MEDS ORDERED: Fluticasone Nasal 50 mcg/Spray NS PRN (16:09)
[2017-03-06 17:29] VITALS: BMI 23.2
[2017-03-06] MEDS ORDERED: Pneumococcal 23-Valent Vaccine IM ONE (17:29)
[2017-03-06] MEDS: Insulin Lispro (humaLOG) LOW Coverage SC SCH ×2 (18:11→22:15)
--- NOTE | 2017-03-06 20:36 | MRI ---
EXAM: MR Angiography Neck Without Intravenous Contrast EXAM DATE/TIME: 03/06/2017 4:27 PM CLINICAL HISTORY: The patient age is 71 years old and is female; Signs and symptoms; Dizziness and giddiness Facility exam id and description: Mri mra necks mra neck without contrast TECHNIQUE: Magnetic resonance angiography images of the neck without intravenous contrast. COMPARISON: US - CAROTID VERTEBRAL DUPLEX 09/21/2015 9:55:42 AM FINDINGS: Right common carotid artery: The proximal common carotid arteries extend out of the field of view of this study. The remaining right common carotid artery is patent. Right internal carotid artery: There is stenosis of the proximal right internal carotid artery. The degree of stenosis is approximately 75%. The measurement of stenosis of the proximal right internal carotid artery was done on the 3-D reconstruction images. There is a focal area of signal void in this region on the 2-D [id number] images. No occlusion. Right external carotid artery: No occlusion. Right vertebral artery: There is poor visualization of the proximal and mid right vertebral artery. These findings are concerning for severe stenosis or occlusion with reconstitution distally. There is a diffuse decrease in caliber of the right vertebral artery. Left common carotid artery: There is stenosis of the distal left common carotid artery. The degree of stenosis is approximately 50%. There is increased tortuosity of the left common carotid artery. No occlusion. Left internal carotid artery: There is stenosis of the proximal left internal carotid artery, the degree of stenosis being approximately 50%. No occlusion. Left external carotid artery: There is mild stenosis of the proximal left external carotid artery. No occlusion. Left vertebral artery: A dominant left vertebral artery is identified. Focal areas of signal void are identified within the left vertebral artery, likely contributed by artifact although stenosis cannot be excluded. CAROTID STENOSIS REFERENCE USING NASCET CRITERIA: % ICA stenosis = (1 - narrowest ICA diameter/diameter of distal cervical ICA) x 100. Mild - <50% stenosis. Moderate - 50-69% stenosis. Severe - 70-94% stenosis. Near occlusion - 95-99% stenosis. Occluded - 100% stenosis. IMPRESSION: 1. There is stenosis of the proximal right internal carotid artery. The degree of stenosis is approximately 75%. 2. There is mild stenosis of the proximal left external carotid artery. 3. There is stenosis of the distal left common carotid artery. The degree of stenosis is approximately 50%. 4. There is stenosis of the proximal left internal carotid artery, the degree of stenosis being approximately 50%. 5. There is poor visualization of the proximal and mid right vertebral artery. These findings are concerning for severe stenosis or occlusion with reconstitution distally. Correlation with CTA is recommended. 6. A dominant left vertebral artery is identified. 7. Additional findings described above.
--- NOTE | 2017-03-06 20:45 | MRI ---
EXAM: MR Head Without Intravenous Contrast EXAM DATE/TIME: 03/06/2017 4:28 PM CLINICAL HISTORY: The patient age is 71 years old and is female; Signs and symptoms; Dizziness Facility exam id and description: Mri br s brain without contrast TECHNIQUE: Magnetic resonance images of the head/brain without intravenous contrast in multiple planes. COMPARISON: CT - HEAD W/O CONTRAST 03/06/2017 1:46:54 PM FINDINGS: Brain: Within the superior right parietal lobe on series 3 image 22, there is a small focus of restricted diffusion. This is suggestive of acute ischemic change, although artifact can contribute to this finding. There are scattered foci of high FLAIR signal intensity within the cerebral white matter. There is no mass effect or restricted diffusion associated with these foci. In a patient this age, this likely represents chronic small vessel ischemic disease. There is moderate prominence of the ventricles and sulci, compatible with atrophy. Foci of T2 hyperintensity are identified within the bilateral basal ganglia, consistent with chronic ischemic changes. Foci of high T2 and central flair hypointensity are visualized within the bilateral basal ganglia and right periventricular white matter, consistent with chronic lacunar infarcts. No cerebral edema. Ventricles: There is ventriculomegaly. Periventricular T2 hyperintensity is identified. Normal pressure hydrocephalus cannot be excluded. Bones/joints: No acute abnormality. Sinuses: Artifact limits evaluation of the left maxillary sinus. No acute sinusitis. Mastoid air cells: No mastoid effusion. Orbits: Probable bilateral intraorbital lens implants are visualized. IMPRESSION: 1. Within the superior right parietal lobe on series 3 image 22, there is a small focus of restricted diffusion. This is suggestive of acute ischemic change, although artifact can contribute to this finding. 2. There are scattered foci of high FLAIR signal intensity within the cerebral white matter. In a patient this age, this likely represents chronic small vessel ischemic disease. 3. Moderate atrophy. 4. There is ventriculomegaly. Normal pressure hydrocephalus cannot be excluded. 5. Additional chronic ischemic changes are noted above.
--- NOTE | 2017-03-06 21:40 | CP.PCM.CON ---
<Vipin Loya - Last Filed: 03/06/17 21:33> History of Present Illness - History of Present Illness History of Present Illness: Neurology Consult Note for Dr. Cordova Service Consulted for: Dizziness HPI: This is a 71 yo F with PMH of HTN, HLD, CAD s/p CABG x2, PVD, Iron deficiency anemia, gastric and duodenal ulcers, multiple polyps in colon, Diabetes, and right-sided breast ca s/p mastectomy who [place] [facility] [place]. Patient has been [place] [facility] [place] times previously and complained of dizziness in addition to chief complaint, but reports that her dizziness is the primary complaint for this visit. Patient first experienced it last night, while turning her head in bed. Reports dizziness with sensation of room spinning with and left/right rotational movement of head, but denies sensation at rest. She reports chronic dizziness, but reports it is normally intermittent; she is presenting for dizziness because it has not subsided this time. She denies vision changes, syncope/near-syncope, nausea/emesis, new generalized or focal weakness, fevers/chills, sensation of pain or fullness in either or both ears, tinnitis, cough, dysuria/hematuria, or diarrhea/ constipation/melena/hematochezia. Admits to headache concurrent with dizziness , and to longstanding poor PO intake (daughter at bedside confirms poor PO intake, confirms not an acute change). All other ROS in 12-point system review negative. In the ED, patient was given IVF and meclizine, without any symptom relief. PMH: as above PSH: CABG x 2 (most recently in 2013), right breast mastectomy, recent EGD and colonoscopy, Multiple vascular procedures for bilateral lower extremities including stenting and atherectomy (October 2016) SHx: Denies tobacco, alcohol, drugs. FHx: Non-contributory PMD: Dr. Linton Review of Systems - Review of Systems All systems: reviewed and no additional remarkable complaints except (as per HPI ) Past Patient History - Infectious Disease Hx of Infectious Diseases: None - Tetanus Immunizations Tetanus Immunization: Unknown - Past Social History Smoking Status: Never Smoked - CARDIAC Hx Cardiac Disorders: Yes (CAD,UNSTABLE ANGINA,CABG X 2,ANGIOPLASTY) Hx Circulatory Problems: Yes Hx Hypercholesterolemia: Yes Hx Hypertension: Yes Hx Pacemaker: No Hx Peripheral Vascular Disease: Yes - PULMONARY Hx Respiratory Disorders: No - NEUROLOGICAL Hx Neurological Disorder: Yes Hx Dizziness: Yes (03-06-17) Hx Transient Ischemic Attacks (TIA): Yes - HEENT Hx HEENT Problems: Yes (DECREASED PHERIPEHRAL VISION SECONDARY TO CVA) Hx Cataracts: Yes (Bilateral surgery) - RENAL Hx Chronic Kidney Disease: No - ENDOCRINE/METABOLIC Hx Endocrine Disorders: Yes Hx Diabetes Mellitus Type 2: Yes - HEMATOLOGICAL/ONCOLOGICAL Hx Blood Disorders: Yes Hx Cancer: Yes (Breast Ca RIGHT WITH LUMPECTOMY ONLY & SKin CA,CERVICAL CA) Hx Chemotherapy: Yes Other/Comment: diagnosed with r breast ca 2 yrs ago had chemo and radiation, RIGHT NOW ON CHEMO PO DRUGS 03-06-17 - INTEGUMENTARY Hx Dermatological Problems: No - MUSCULOSKELETAL/RHEUMATOLOGICAL Hx Musculoskeletal Disorders: No Hx Falls: Yes Hx Unsteady Gait: Yes (CANE) - GASTROINTESTINAL Hx Gastrointestinal Disorders: Yes Hx Gastroesophageal Reflux: Yes Other/Comment: egd/colonoscopy 06/11/14,hiatal hernia, esophagitis, gastric erosions, duodenitis, diverticulosis, redundant colon, polyps, hemorrhoids - GENITOURINARY/GYNECOLOGICAL Hx Genitourinary Disorders: No - PSYCHIATRIC Hx Emotional Abuse: No Hx Physical Abuse: No Hx Substance Use: No - SURGICAL HISTORY Hx Surgeries: Yes (BILATERAL CATARACT SURGERY) Hx Cardiac Catheterization: Yes Hx Coronary Stent: Yes (ptca / stents 2011) Hx Open Heart Surgery: Yes Other/Comment: R breast LUMPECTOMY, 10/16/16 abd aortagram and b/l lower ext runoff, angioplasty,stent - ANESTHESIA Hx Anesthesia Reactions: No Hx Malignant Hyperthermia: No Meds Allergies/Adverse Reactions: Allergies Allergy/AdvReac Type Severity Reaction Status Date / Time No Known Allergies Allergy Verified 03/06/17 17:04 - Medications Medications: Current Medications Anastrozole (Arimidex 1 Mg Tab) 1 mg PO DAILY [facility] Clopidogrel Bisulfate (Plavix) 1 mg PO DAILY [facility] Home Med (Home Med) 1 unit PO DIN [facility] Hydralazine HCl (Apresoline) 25 mg PO BID [facility] Last Admin: 03/06/17 18:55 Dose: 25 mg Hydrochlorothiazide (Microzide) 12.5 mg PO DAILY [facility] Insulin Human Lispro (Humalog Low) 0 units SC ACHS [facility] PRN Reason: Protocol Last Admin: 03/06/17 18:11 Dose: Not Given Losartan Potassium (Cozaar) 50 mg PO DAILY [facility] Metoprolol Tartrate (Lopressor) 50 mg PO BID [facility] Last Admin: 03/06/17 18:56 Dose: 50 mg Non-Formulary Medication (Mometasone Furoate [Nasonex]) 0.05 mg NS DAILY PRN PRN Reason: Allergy symptoms Physical Exam - Constitutional Appears: Non-toxic, No Acute Distress, Chronically Ill - Head Exam Head Exam: ATRAUMATIC, NORMAL INSPECTION, NORMOCEPHALIC - Eye Exam Eye Exam: EOMI, Normal appearance, PERRL. absent: Conjunctival injection, Scleral icterus Pupil Exam: NORMAL ACCOMODATION, PERRL. absent: Fixed, Irregular, Unequal Additional comments: No nystagmus with Chelsie-halpike testing, some left-lateral nystagmus when tracking /attempting to track abrupt lateral movement after focusing on single point in anterior visual field - ENT Exam ENT Exam: Mucous Membranes Moist - Neck Exam Neck exam: Negative for: Lymphadenopathy, Tenderness, Thyromegaly Additional comments: Passive ROM of neck intact and equal bilaterally, patient intentionally restricting active motion of neck (especially rotational) due to dizziness sx - Respiratory Exam Respiratory Exam: Clear to Auscultation Bilateral, NORMAL BREATHING PATTERN. absent: Accessory Muscle Use, Chest Wall Tenderness, Decreased Breath Sounds, Rales, Rhonchi, Wheezes - Cardiovascular Exam Cardiovascular Exam: Bradycardia, REGULAR RHYTHM, +S1, +S2. absent: Tachycardia , Diastolic murmur, Irregular Rhythm, JVD, RRR (slow rate, regular rhythm), +S4 , Systolic Murmur - GI/Abdominal Exam GI & Abdominal Exam: Normal Bowel Sounds, Soft. absent: Diminished Bowel Sounds , Firm, Guarding, Hyperactive Bowel Sounds, Hypoactive Bowel Sounds, Rigid, Tenderness - Extremities Exam Extremities exam: Positive for: normal capillary refill, normal inspection, pedal pulses present. Negative for: calf tenderness, pedal edema, tenderness - Neurological Exam Additional comments: awake and alert, oriented x3 (self, location, year), CN II-XII intact, moving all extremities spontaneously and on commands, gross motor and sensory intact in all extremities. - Psychiatric Exam Psychiatric exam: Normal Affect, Normal Mood - Skin Skin Exam: Dry, Intact, Normal Color, Warm Results - Vital Signs Recent Vital Signs: Last Vital Signs Temp 97 F L 03/06/17 17:06 Pulse 61 03/06/17 18:56 Resp 18 03/06/17 17:06 BP 169/72 H 03/06/17 18:56 Pulse Ox 100 03/06/17 16:46 - Labs Result Diagrams: 03/06/17 13:35 03/06/17 13:35 Labs: Laboratory Results - last 24 hr 03/06/17 03/06/17 15:12 16:57 POC Glucose (mg/dL) 173 H Urine Color Yellow Urine Appearance Clear Urine pH 6.5 Ur Specific [place] 1.015 Urine Protein Negative Urine Glucose (UA) Negative Urine Ketones Negative Urine Blood Negative Urine Nitrate Negative Urine Bilirubin Negative Urine Urobilinogen 0.2 Ur Leukocyte Esterase Trace H Urine RBC 0 - 2 Urine WBC 2 - 5 Ur Epithelial Cells 3 - 4 Assessment & Plan - Assessment and Plan (Free Text) Assessment: This is a 71 yo F with PMH of HTN, HLD, CAD s/p CABG x2, PVD, Iron deficiency anemia, gastric and duodenal ulcers, multiple polyps in colon, Diabetes, and right-sided breast ca s/p mastectomy who [place] [facility] [place] of [place]. Her dizziness is chronic, acute exacerbation may be secondary to poor PO intake vs bradycardia. Patient is also a severe vasculopath, and most recent carotid duplex was notable for R-ICA 60-79% stenosed and L-ICA 20-39% stenosis. Less likely amurosis fugax picture given lack of vision changes/loss and no syncope/presyncope/sided-deficits, but need to rule out worsening stenosis. Plan: 1) MRI/MRA of Head and Neck, and Carotid Duplex, to assess for central vs carotid artery stenosis 2) Advise Diabetic and low-salt diet 3) Valium 5mg PO x1 4) Avoid sudden movements 5) ASA 81mg/Plavix 75mg/Lipitor 10mg for stroke prevention and in setting of Carotid and Peripheral Vascular disease 6) maintain Blood Glucose 140-180 7) May require outpatient vestibular rehab Patient seen, discussed, and reviewed with attending, Dr. Jesus Cordova. <Zan Cordova - Last Filed: 03/07/17 11:18> Meds - Medications Medications: Current Medications Anastrozole (Arimidex 1 Mg Tab) 1 mg PO DAILY [facility] Last Admin: 03/07/17 09:30 Dose: 1 mg Clopidogrel Bisulfate (Plavix) 75 mg PO DAILY [facility] Last Admin: 03/07/17 09:36 Dose: 75 mg Fluticasone Propionate (Flonase) 2 actuation NS DAILY PRN PRN Reason: Allergy symptoms Home Med (Home Med) 1 unit PO DIN [facility] Hydralazine HCl (Apresoline) 25 mg PO BID [facility] Last Admin: 03/07/17 09:27 Dose: 25 mg Hydrochlorothiazide (Microzide) 12.5 mg PO DAILY [facility] Last Admin: 03/07/17 09:31 Dose: 12.5 mg Insulin Human Lispro (Humalog Low) 0 units SC ACHS [facility] PRN Reason: Protocol Last Admin: 03/07/17 08:13 Dose: Not Given Losartan Potassium (Cozaar) 50 mg PO DAILY [facility] Last Admin: 03/07/17 09:29 Dose: 50 mg Metoprolol Tartrate (Lopressor) 50 mg PO BID [facility] Last Admin: 03/07/17 09:29 Dose: 50 mg Results - Vital Signs Recent Vital Signs: Last Vital Signs Temp 98.3 F 03/07/17 06:00 Pulse 62 03/07/17 10:00 Resp 20 03/07/17 06:00 BP 142/64 03/07/17 09:27 Pulse Ox 98 03/07/17 06:00 - Labs Result Diagrams: 03/06/17 13:35 03/06/17 13:35 Labs: Laboratory Results - last 24 hr 03/06/17 03/06/17 03/06/17 15:12 16:57 21:30 POC Glucose (mg/dL) 173 H 118 H Urine Color Yellow Urine Appearance Clear Urine pH 6.5 Ur Specific [place] 1.015 Urine Protein Negative Urine Glucose (UA) Negative Urine Ketones Negative Urine Blood Negative Urine Nitrate Negative Urine Bilirubin Negative Urine Urobilinogen 0.2 Ur Leukocyte Esterase Trace H Urine RBC 0 - 2 Urine WBC 2 - 5 Ur Epithelial Cells 3 - 4 03/07/17 07:09 POC Glucose (mg/dL) 113 H Urine Color Urine Appearance Urine pH Ur Specific [place] Urine Protein Urine Glucose (UA) Urine Ketones Urine Blood Urine Nitrate Urine Bilirubin Urine Urobilinogen Ur Leukocyte Esterase Urine RBC Urine WBC Ur Epithelial Cells Attending/Attestation - Attestation I have personally seen and examined this patient.: Yes I have fully participated in the care of the patient.: Yes I have reviewed all pertinent clinical information: Yes
[2017-03-06 22:39] LABS: CHOLESTEROL 164 mg/dL (130-200)
[2017-03-07] MEDS: Insulin Lispro (humaLOG) LOW Coverage SC SCH ×4 (08:13→22:20)
--- NOTE | 2017-03-07 09:36 | CARD ---
APPROVED REPORT EKG Measurement Heart [id number] <Conclusion> Sinus bradycardia Otherwise normal ECG
--- NOTE | 2017-03-07 13:30 | CT ---
PROCEDURE: CT Angiography of the neck with contrast HISTORY: carotid and vertebral artery stenosis. COMPARISON: None available. TECHNIQUE: Contiguous axial images of the neck were obtained from the level of the skull-base to the superior mediastinum in the arteriographic phase of enhancement. Coronal and sagittal reformats or also generated. IV contrast dose: 150 cc of Omni 350 Radiation Dose - DLP: 407 mGy-cm This CT exam was performed using one or more of the following dose reduction techniques: Automated exposure control, adjustment of the mA and/or kV according to patient size, and/or use of iterative reconstruction technique. FINDINGS: RIGHT CAROTID ARTERIES: Common Carotid Artery: Normal. Carotid Bifurcation: Normal. Internal Carotid Artery:There is a severe short-segment stenosis in the right internal carotid. This is best visualized on sagittal image 36 series 604. This is probably greater than 80 percent. External Carotid Artery (proximal branches): Normal. LEFT CAROTID ARTERIES: Common Carotid Artery: There is a calcified plaque in the distal left common carotid. There is a mild degree of stenosis probably less than 20 percent Carotid Bifurcation: Normal. Internal Carotid Artery:Normal. External Carotid Artery (proximal branches): Normal. VERTEBRAL ARTERIES: Right Vertebral Artery: Normal. Left Vertebral Artery: Normal. OTHER FINDINGS: None. IMPRESSION: Severe short-segment stenosis in the right internal carotid probably 80 percent Calcified plaque in the distal left common carotid with mild stenosis less than 20 percent
--- NOTE | 2017-03-07 15:54 | CP.PCM.CON ---
<Colten Veras Lisa - Last Filed: 03/07/17 16:22> History of Present Illness - History of Present Illness History of Present Illness: Consult note for Dr. Bella 71yo F presented with dizziness that began while she was sleeping 2 nights ago. Pt states dizziness occurred when turning her head to either side; she currently states symptoms of dizziness with head turning have resolved. She denies any dizziness in the past. She denies any pain, vision changes, headache , ringing in ears, loss of consciousness, numbness, tingling, weakness, facial drooping, nausea/vomiting, fever/chills, chest pain, and shortness of breath. She denies recent illness or sick contacts. PMH: DM2, HTN, HLD, CAD s/p CABG x2 (2013), PVD, iron deficiency anemia, gastric and duodenal ulcers, multiple colonic polyps, R breast CA s/p mastectomy PSH: CABG x2, R breast mastectomy, recent EGD & colonoscopy, multiple vascular procedures FH: unknown Social: denies tobacco, alcohol, and drug use All: NKDA Review of Systems - Review of Systems All systems: reviewed and no additional remarkable complaints except Past Patient History - Infectious Disease Hx of Infectious Diseases: None - Tetanus Immunizations Tetanus Immunization: Unknown - Past Social History Smoking Status: Never Smoked Alcohol: None Drugs: Denies - CARDIAC Hx Cardiac Disorders: Yes (CAD,UNSTABLE ANGINA,CABG X 2,ANGIOPLASTY) Hx Circulatory Problems: Yes Hx Hypercholesterolemia: Yes Hx Hypertension: Yes Hx Pacemaker: No Hx Peripheral Vascular Disease: Yes - PULMONARY Hx Respiratory Disorders: No - NEUROLOGICAL Hx Neurological Disorder: Yes Hx Dizziness: Yes (03-06-17) Hx Transient Ischemic Attacks (TIA): Yes - HEENT Hx HEENT Problems: Yes (DECREASED PHERIPEHRAL VISION SECONDARY TO CVA) Hx Cataracts: Yes (Bilateral surgery) - RENAL Hx Chronic Kidney Disease: No - ENDOCRINE/METABOLIC Hx Endocrine Disorders: Yes Hx Diabetes Mellitus Type 2: Yes - HEMATOLOGICAL/ONCOLOGICAL Hx Blood Disorders: Yes Hx Cancer: Yes (Breast Ca RIGHT WITH LUMPECTOMY ONLY & SKin CA,CERVICAL CA) Hx Chemotherapy: Yes Other/Comment: diagnosed with r breast ca 2 yrs ago had chemo and radiation, RIGHT NOW ON CHEMO PO DRUGS 03-06-17 - INTEGUMENTARY Hx Dermatological Problems: No - MUSCULOSKELETAL/RHEUMATOLOGICAL Hx Musculoskeletal Disorders: No Hx Falls: Yes Hx Unsteady Gait: Yes (CANE) - GASTROINTESTINAL Hx Gastrointestinal Disorders: Yes Hx Gastroesophageal Reflux: Yes Other/Comment: egd/colonoscopy 06/11/14,hiatal hernia, esophagitis, gastric erosions, duodenitis, diverticulosis, redundant colon, polyps, hemorrhoids - GENITOURINARY/GYNECOLOGICAL Hx Genitourinary Disorders: No - PSYCHIATRIC Hx Emotional Abuse: No Hx Physical Abuse: No Hx Substance Use: No - SURGICAL HISTORY Hx Surgeries: Yes (BILATERAL CATARACT SURGERY) Hx Cardiac Catheterization: Yes Hx Coronary Stent: Yes (ptca w/2 stents 2011) Hx Open Heart Surgery: Yes Other/Comment: R breast LUMPECTOMY, 10/16/16 abd aortagram and b/l lower ext runoff, angioplasty,stent - ANESTHESIA Hx Anesthesia Reactions: No Hx Malignant Hyperthermia: No Meds Home Medications: Home Medication List Medication Instructions Recorded Confirmed Type Fluticasone Nasal [Flonase] 2 actuation NS DAILY PRN spr 03/07/17 Rx Home Med 1 unit PO DIN ea 03/07/17 Rx Insulin Lispro-LOW [humALOG LOW] 0 units SC ACHS ml 03/07/17 Rx Losartan [Cozaar] 50 mg PO DAILY tab 03/07/17 Rx hydroCHLOROthiazide [Microzide] 12.5 mg PO DAILY cap 03/07/17 Rx Allergies/Adverse Reactions: Allergies Allergy/AdvReac Type Severity Reaction Status Date / Time No Known Allergies Allergy Verified 03/06/17 17:04 - Medications Medications: Current Medications Anastrozole (Arimidex 1 Mg Tab) 1 mg PO DAILY [facility] Last Admin: 03/07/17 09:30 Dose: 1 mg Aspirin (Aspirin Chewable) 81 mg PO DAILY [facility] Last Admin: 03/07/17 12:28 Dose: 81 mg Atorvastatin Calcium (Lipitor) 80 mg PO DIN [facility] Clopidogrel Bisulfate (Plavix) 75 mg PO DAILY [facility] Last Admin: 03/07/17 09:36 Dose: 75 mg Fluticasone Propionate (Flonase) 2 actuation NS DAILY PRN PRN Reason: Allergy symptoms Home Med (Home Med) 1 unit PO DIN [facility] Hydralazine HCl (Apresoline) 25 mg PO BID [facility] Last Admin: 03/07/17 09:27 Dose: 25 mg Hydrochlorothiazide (Microzide) 12.5 mg PO DAILY [facility] Last Admin: 03/07/17 09:31 Dose: 12.5 mg Insulin Human Lispro (Humalog Low) 0 units SC ACHS [facility] PRN Reason: Protocol Last Admin: 03/07/17 12:29 Dose: 2 units Losartan Potassium (Cozaar) 50 mg PO DAILY [facility] Last Admin: 03/07/17 09:29 Dose: 50 mg Metoprolol Tartrate (Lopressor) 50 mg PO BID [facility] Last Admin: 03/07/17 09:29 Dose: 50 mg Physical Exam - Constitutional Appears: Non-toxic - Head Exam Head Exam: ATRAUMATIC, NORMOCEPHALIC - Eye Exam Eye Exam: EOMI, PERRL. absent: Nystagmus Additional comments: Diks-Halpike negative for nystagmus - ENT Exam ENT Exam: Mucous Membranes Moist - Neck Exam Neck exam: Positive for: Full Rom, Normal Inspection. Negative for: Tenderness - Respiratory Exam Respiratory Exam: Clear to Auscultation Bilateral. absent: Accessory Muscle Use , Rales, Rhonchi, Wheezes, Respiratory Distress - Cardiovascular Exam Cardiovascular Exam: RRR, +S1, +S2. absent: Bradycardia, Tachycardia - GI/Abdominal Exam GI & Abdominal Exam: Normal Bowel Sounds, Soft. absent: Distended, Tenderness - Extremities Exam Extremities exam: Negative for: pedal edema - Neurological Exam Neurological exam: Alert, CN II-XII Intact, Oriented x3 - Psychiatric Exam Psychiatric exam: Normal Affect, Normal Mood - Skin Skin Exam: Dry, Intact, Warm Results - Vital Signs Recent Vital Signs: Last Vital Signs Temp 98.3 F 03/07/17 06:00 Pulse 62 03/07/17 10:00 Resp 20 03/07/17 06:00 BP 142/64 03/07/17 09:27 Pulse Ox 98 03/07/17 06:00 - Labs Result Diagrams: 03/06/17 13:35 03/06/17 13:35 Assessment & Plan - Assessment and Plan (Free Text) Assessment: 71yo F presents with dizziness with PMH of DM2, HTN, HLD, CAD s/p CABG x2, PVD, iron deficiency anemia, gastric and duodenal ulcers, multiple colonic polyps, R breast CA s/p mastectomy. Plan: - CEA - ASA, Plavix, Lipitor - HHD - PT eval - diabetes management per primary - continue with medical management per medicine team -further recommendations to follow pending Vasc Sx eval tomorrow morning. Discussed with Dr. 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 Patient is asymptomatic now but any body can argue that she had old infarction, regardless patient need CEA
--- NOTE | 2017-03-07 16:24 | CP.PCM.PN ---
<Vipin Loya - Last Filed: 03/07/17 16:19> Subjective - Date & Time of Evaluation Date of Evaluation: 03/07/17 Time of Evaluation: 09:30 - Subjective Subjective: Neurology progress note for Dr. Cordova Service Patient seen and examined at bedside. No acute events reported overnight. Today, patient initially sleeping in bed on side, but easily aroused. States some dizziness with movement still present, but improved compared to yesterday after receiving the 1x dose of valium last night. Denies any new complaints, including chest pain, shortness of breath, vision changes, nausea/emesis, focal weakness, or fever/chills. Objective - Vital Signs/Intake and Output Vital Signs (last 24 hours): Temp Pulse Resp BP Pulse Ox 98.3 F 62 20 142/64 98 03/07/17 06:00 03/07/17 10:00 03/07/17 06:00 03/07/17 09:27 03/07/17 06:00 - Medications Medications: Current Medications Anastrozole (Arimidex 1 Mg Tab) 1 mg PO DAILY [facility] Last Admin: 03/07/17 09:30 Dose: 1 mg Aspirin (Aspirin Chewable) 81 mg PO DAILY [facility] Last Admin: 03/07/17 12:28 Dose: 81 mg Atorvastatin Calcium (Lipitor) 80 mg PO DIN [facility] Clopidogrel Bisulfate (Plavix) 75 mg PO DAILY [facility] Last Admin: 03/07/17 09:36 Dose: 75 mg Fluticasone Propionate (Flonase) 2 actuation NS DAILY PRN PRN Reason: Allergy symptoms Home Med (Home Med) 1 unit PO DIN [facility] Hydralazine HCl (Apresoline) 25 mg PO BID [facility] Last Admin: 03/07/17 09:27 Dose: 25 mg Hydrochlorothiazide (Microzide) 12.5 mg PO DAILY [facility] Last Admin: 03/07/17 09:31 Dose: 12.5 mg Insulin Human Lispro (Humalog Low) 0 units SC [facility] PRN Reason: Protocol Last Admin: 03/07/17 12:29 Dose: 2 units Losartan Potassium (Cozaar) 50 mg PO DAILY [facility] Last Admin: 03/07/17 09:29 Dose: 50 mg Metoprolol Tartrate (Lopressor) 50 mg PO BID [facility] Last Admin: 03/07/17 09:29 Dose: 50 mg - Labs Labs: PT 10.8 Seconds (9.9-11.8) 03/06/17 13:35 INR 1.00 (0.93-1.08) 03/06/17 13:35 APTT 25.2 Seconds (23.7-30.8) 03/06/17 13:35 - Additional Findings Additional findings: - Constitutional Appears: Non-toxic, No Acute Distress, Chronically Ill - Head Exam Head Exam: ATRAUMATIC, NORMAL INSPECTION, NORMOCEPHALIC - Eye Exam Eye Exam: EOMI, Normal appearance, PERRL. absent: Conjunctival injection, Scleral icterus Pupil Exam: NORMAL ACCOMODATION, PERRL. absent: Fixed, Irregular, Unequal - ENT Exam ENT Exam: Mucous Membranes Moist - Neck Exam Neck exam: Negative for: Lymphadenopathy, Tenderness, Thyromegaly - Respiratory Exam Respiratory Exam: Clear to Auscultation Bilateral, NORMAL BREATHING PATTERN. absent: Accessory Muscle Use, Chest Wall Tenderness, Decreased Breath Sounds, Rales, Rhonchi, Wheezes - Cardiovascular Exam Cardiovascular Exam: Bradycardia, REGULAR RHYTHM, +S1, +S2. absent: Tachycardia , Diastolic murmur, Irregular Rhythm, JVD, RRR (slow rate, regular rhythm), +S4 , Systolic Murmur - GI/Abdominal Exam GI & Abdominal Exam: Normal Bowel Sounds, Soft. absent: Diminished Bowel Sounds , Firm, Guarding, Hyperactive Bowel Sounds, Hypoactive Bowel Sounds, Rigid, Tenderness - Extremities Exam Extremities exam: Positive for: normal capillary refill, normal inspection, pedal pulses present. Negative for: calf tenderness, pedal edema, tenderness - Neurological Exam Awake and alert, oriented x3 (self, location, year), CN II-XII intact, moving all extremities spontaneously and on commands, gross motor and sensory intact in all extremities. - Psychiatric Exam Psychiatric exam: Normal Affect, Normal Mood - Skin Skin Exam: Dry, Intact, Normal Color, Warm Assessment and Plan - Assessment and Plan (Free Text) Assessment: This is a 71 yo F with PMH of HTN, HLD, CAD s/p CABG x2, PVD, Iron deficiency anemia, gastric and duodenal ulcers, multiple polyps in colon, Diabetes, and right-sided breast ca s/p mastectomy who presents to [facility] [place] with complaint of dizziness. Her dizziness is chronic, acute exacerbation may be secondary to poor PO intake vs bradycardia. Patient is also a severe vasculopath, and most recent carotid duplex was notable for R-ICA 60-79% stenosed and L-ICA 20-39% stenosis. MRI/ MRA obtained and notable for 75% R-ICA stenosis, 50% L-ICA stenosis, and proximal and mid-right vertebral arteries concerning for severe stenosis/ occlusion. CT angio ordered, and Vascular Surgery consulted for possible CEA. Incidentally found infarct on MRI, not convincing for cause of symptoms. Plan: 1) MRI/MRA of Head and Neck obtained, please see report for full details; CT angio ordered and Vasc Surgery consulted for possible CEA in setting of 75% R- ICA stenosis and symptomatic 2) Advise Diabetic and low-salt diet 3) Avoid sudden movements 4) ASA 81mg/Plavix 75mg for stroke prevention and in setting of Carotid and Peripheral Vascular disease; increased Lipitor to 80mg PO daily 5) maintain Blood Glucose 140-180 6) May require outpatient vestibular rehab Patient seen, discussed, and reviewed with attending, Dr. Jesus Cordova. <Zan Cordova - Last Filed: 03/07/17 17:07> Objective - Vital Signs/Intake and Output Vital Signs (last 24 hours): Temp Pulse Resp BP Pulse Ox 97.8 F 56 L 20 143/49 L 100 03/07/17 16:34 03/07/17 16:34 03/07/17 16:34 03/07/17 16:34 03/07/17 16:34 - Medications Medications: Current Medications Anastrozole (Arimidex 1 Mg Tab) 1 mg PO DAILY [facility] Last Admin: 03/07/17 09:30 Dose: 1 mg Aspirin (Aspirin Chewable) 81 mg PO DAILY [facility] Last Admin: 03/07/17 12:28 Dose: 81 mg Atorvastatin Calcium (Lipitor) 80 mg PO DIN [facility] Clopidogrel Bisulfate (Plavix) 75 mg PO DAILY [facility] Last Admin: 03/07/17 09:36 Dose: 75 mg Fluticasone Propionate (Flonase) 2 actuation NS DAILY PRN PRN Reason: Allergy symptoms Home Med (Home Med) 1 unit PO DIN [facility] Hydralazine HCl (Apresoline) 25 mg PO BID [facility] Last Admin: 03/07/17 09:27 Dose: 25 mg Hydrochlorothiazide (Microzide) 12.5 mg PO DAILY [facility] Last Admin: 03/07/17 09:31 Dose: 12.5 mg Insulin Human Lispro (Humalog Low) 0 units SC [facility] PRN Reason: Protocol Last Admin: 03/07/17 12:29 Dose: 2 units Losartan Potassium (Cozaar) 50 mg PO DAILY [facility] Last Admin: 03/07/17 09:29 Dose: 50 mg Metoprolol Tartrate (Lopressor) 50 mg PO BID [facility] Last Admin: 03/07/17 09:29 Dose: 50 mg - Labs Labs: PT 10.8 Seconds (9.9-11.8) 03/06/17 13:35 INR 1.00 (0.93-1.08) 03/06/17 13:35 APTT 25.2 Seconds (23.7-30.8) 03/06/17 13:35 Attending/Attestation - Attestation I have personally seen and examined this patient.: Yes I have fully participated in the care of the patient.: Yes I have reviewed all pertinent clinical information, including history, physical exam and plan: Yes
[2017-03-07] MEDS: CRESTOR 5 MG PO SCH (17:37)
--- NOTE | 2017-03-08 00:09 | CP.PCM.PN ---
Subjective - Date & Time of Evaluation Date of Evaluation: 03/08/17 Time of Evaluation: 00:08 - Subjective Subjective: S:Patient was seen at bedside. Requested a sleeping pill. Has no other complaints. Medical record was reviewed. O: Last Vital Signs 3 Temp 97.8 F 03/07/17 16:34 Pulse 52 L 03/08/17 02:00 Resp 20 03/07/17 16:34 BP 179/73 H 03/07/17 17:36 Pulse Ox 100 03/07/17 16:34 Awake, alert, not in distress. LUNGS:Normal breathing pattern. A:Adjustment insomnia. P:Benadryl 25 mg PO now. Objective - Vital Signs/Intake and Output Vital Signs (last 24 hours): Temp Pulse Resp BP Pulse Ox 97.8 F 60 20 179/73 H 100 03/07/17 16:34 03/07/17 17:36 03/07/17 16:34 03/07/17 17:36 03/07/17 16:34 Intake and Output: 03/07/17 03/08/17 18:59 06:59 Intake Total 420 Balance 420 - Medications Medications: Current Medications Anastrozole (Arimidex 1 Mg Tab) 1 mg PO DAILY [facility] Last Admin: 03/07/17 09:30 Dose: 1 mg Aspirin (Aspirin Chewable) 81 mg PO DAILY [facility] Last Admin: 03/07/17 12:28 Dose: 81 mg Atorvastatin Calcium (Lipitor) 80 mg PO DIN [facility] Last Admin: 03/07/17 17:35 Dose: 80 mg Clopidogrel Bisulfate (Plavix) 75 mg PO DAILY [facility] Last Admin: 03/07/17 09:36 Dose: 75 mg Fluticasone Propionate (Flonase) 2 actuation NS DAILY PRN PRN Reason: Allergy symptoms Home Med (Home Med) 1 unit PO DIN [facility] Last Admin: 03/07/17 17:37 Dose: Not Given Hydralazine HCl (Apresoline) 25 mg PO BID [facility] Last Admin: 03/07/17 17:36 Dose: 25 mg Hydrochlorothiazide (Microzide) 12.5 mg PO DAILY [facility] Last Admin: 03/07/17 09:31 Dose: 12.5 mg Insulin Human Lispro (Humalog Low) 0 units SC [facility] PRN Reason: Protocol Last Admin: 03/07/17 22:20 Dose: Not Given Losartan Potassium (Cozaar) 50 mg PO DAILY [facility] Last Admin: 03/07/17 09:29 Dose: 50 mg Metoprolol Tartrate (Lopressor) 50 mg PO BID [facility] Last Admin: 03/07/17 17:35 Dose: 50 mg - Labs Labs: PT 10.8 Seconds (9.9-11.8) 03/06/17 13:35 INR 1.00 (0.93-1.08) 03/06/17 13:35 APTT 25.2 Seconds (23.7-30.8) 03/06/17 13:35
--- NOTE | 2017-03-08 00:32 | HP ---
DATE OF EVALUATION: 03/07/2017 HISTORY OF PRESENT ILLNESS: Ms. Fallon is a 71-year-old female, presented to ED with dizziness. She has history of breast cancer status post right-sided mastectomy. She also has a history of iron deficiency anemia, history of gastric and duodenal ulcers. She has diabetes mellitus type 2. Sugars controlled on current medications. She also has history of peripheral vascular disease status post CABG. She had multiple vascular procedures on lower extremity. MRI of the brain showed chronic ischemic changes. CT angio showed 80% occlusion of right internal carotid artery, calcified plaque in left distal common carotid artery. PAST MEDICAL HISTORY: Coronary artery disease, peripheral vascular disease, history of hypertension, iron deficiency anemia, gastric ulcer, duodenal ulcer, right-sided breast cancer status post mastectomy in 2013. PERSONAL HISTORY: None smoker. No history of alcohol abuse. PAST SURGICAL HISTORY: Right-sided mastectomy, peripheral vascular disease, multiple stents placement, coronary artery bypass surgery. ALLERGIES: NO KNOWN DRUG ALLERGIES. SOCIAL HISTORY: Lives at home with . HOME MEDICATIONS: Crestor 5 mg daily, losartan 1 tablet daily, metformin 500 mg p.o. b.i.d., metoprolol 50 mg p.o. b.i.d., hydralazine 25 mg p.o. b.i.d., Arimidex 1 mg daily, and Plavix 1 tablet daily, fish oil. REVIEW OF SYSTEMS: As per HPI, rest of 12-point review of systems reviewed negative. PHYSICAL EXAMINATION: GENERAL: Comfortable in bed, in no acute distress. VITAL SIGNS: Temperature 98.2, HR 86 per minute, respiratory rate is 16 per minute, blood pressure is 118/63, heart rate is 99 per minute. HEENT: Atraumatic and normocephalic. Oral mucosa moist. NECK: Supple. CHEST: Air entry present and equal bilaterally. No added sounds. CARDIOVASCULAR: S1 and S2 normal. No murmur. No gallop. ABDOMEN: Soft and nontender. No hepatosplenomegaly. EXTREMITIES: No edema. CENTRAL NERVOUS SYSTEM: Alert and oriented x3. No focal, sensory, or motor deficit. Gait is normal. LABORATORY DATA: White count 5.1, hemoglobin 10, hematocrit 29.4 and platelet count 158. Sodium 140, potassium 4.2, BUN 31, creatinine 1.3 and glucose 114. MRI, imaging studies as per HPI. ASSESSMENT: 1. Dizziness. 2. Internal carotid artery stenosis. 3. Right-sided breast cancer. 4. Iron deficiency anemia. 5. Coronary artery disease. 6. Peripheral vascular disease. PLAN: She will be admitted to the hospital. We will get neurology consultation with Dr. Cordova, vascular surgery consultation with Dr. Bella, requested. She got CT angio which showed left 80% internal carotid artery stenosis. She will be evaluated by vascular surgery. She has iron deficiency anemia; hemoglobin stable at 10. History of breast cancer, no evidence of recurrence. We will continue to monitor blood counts. Renal; BUN and creatinine are stable. Continue aspirin 81 mg daily, Lipitor 80 mg daily, Plavix 75 mg daily, hydralazine 25 mg p.o. b.i.d., hydrochlorothiazide 12.5 mg daily, sliding scale insulin, Cozaar 50 mg p.o. daily, beta lacy 50 mg p.o. b.i.d. Lisset Rodarte MD [id number]
[2017-03-08] MEDS: Insulin Lispro (humaLOG) LOW Coverage SC SCH ×4 (07:42→21:07)
[2017-03-08 09:37] LABS: EOS % 0.5 % (1.5-5.0); GRAN # 1.9 (1.4-6.5); GRAN % 49.9 % (50.0-68.0); HEMATOCRIT 27.5 % (36.0-48.0); LYMPH % 27.3 % (22.0-35.0); MEAN CELL VOLUME 83.8 fl (80.0-105.0); MEAN CORPUSCULAR HGB CONC 33.5 g/dl (31.0-37.0); MEAN PLATELET VOLUME 10.9 fl (7.0-11.0); MONO # 0.9 (0.1-0.6); MONO % 22.3 % (1.0-6.0); RED CELL DISTRIBUTION WIDTH 15.4 % (11.5-14.5); WHITE BLOOD COUNT 3.8 10^3/ul (4.5-11.0)
[2017-03-08 09:43] LABS: ALB/GLOB RATIO 1.2 (1.1-1.8); BILIRUBIN,TOTAL 0.4 mg/dL (0.2-1.3); POTASSIUM 3.7 mmol/L (3.6-5.0); TOTAL PROTEIN 7.6 g/dL (5.8-8.3)
[2017-03-08 09:49] LABS: IRON 60 ug/dL (45-180)
--- NOTE | 2017-03-08 11:00 | CP.PCM.PN ---
Subjective - Date & Time of Evaluation Date of Evaluation: 03/08/17 Time of Evaluation: 10:57 - Subjective Subjective: Vascular surgery progress note for Dr. Bella PT S&E at bedside. Patient denies any complaints. Seen walking around. Patient denies F/C, dizziness, palpitations, CP, SOB, coughing, abdominal pain. Patient states she feels fine today. Objective - Vital Signs/Intake and Output Vital Signs (last 24 hours): Temp Pulse Resp BP Pulse Ox 98.1 F 60 20 130/56 L 97 03/08/17 07:55 03/08/17 09:22 03/08/17 07:55 03/08/17 09:22 03/08/17 07:55 Intake and Output: 03/08/17 03/08/17 06:59 18:59 Intake Total 540 Balance 540 - Medications Medications: Current Medications Anastrozole (Arimidex 1 Mg Tab) 1 mg PO DAILY [facility] Last Admin: 03/08/17 09:24 Dose: 1 mg Aspirin (Aspirin Chewable) 81 mg PO DAILY [facility] Last Admin: 03/08/17 09:23 Dose: 81 mg Atorvastatin Calcium (Lipitor) 80 mg PO DIN [facility] Last Admin: 03/07/17 17:35 Dose: 80 mg Clopidogrel Bisulfate (Plavix) 75 mg PO DAILY [facility] Last Admin: 03/08/17 09:25 Dose: 75 mg Fluticasone Propionate (Flonase) 2 actuation NS DAILY PRN PRN Reason: Allergy symptoms Home Med (Home Med) 1 unit PO DIN [facility] Last Admin: 03/07/17 17:37 Dose: Not Given Hydralazine HCl (Apresoline) 25 mg PO BID [facility] Last Admin: 03/08/17 09:22 Dose: 25 mg Hydrochlorothiazide (Microzide) 12.5 mg PO DAILY [facility] Last Admin: 03/08/17 09:22 Dose: 12.5 mg Insulin Human Lispro (Humalog Low) 0 units SC [facility]CH[facility] PRN Reason: Protocol Last Admin: 03/08/17 07:42 Dose: Not Given Losartan Potassium (Cozaar) 50 mg PO DAILY [facility] Last Admin: 03/08/17 09:22 Dose: 50 mg Metoprolol Tartrate (Lopressor) 50 mg PO BID [facility] Last Admin: 03/08/17 09:22 Dose: 50 mg - Labs Labs: 03/08/17 09:30 03/08/17 09:30 PT 10.8 Seconds (9.9-11.8) 03/06/17 13:35 INR 1.00 (0.93-1.08) 03/06/17 13:35 APTT 25.2 Seconds (23.7-30.8) 03/06/17 13:35 - Constitutional Appears: No Acute Distress - Head Exam Head Exam: NORMAL INSPECTION - Eye Exam Eye Exam: EOMI, Normal appearance - ENT Exam ENT Exam: Mucous Membranes Moist - Neck Exam Neck Exam: Full ROM, Normal Inspection - Respiratory Exam Respiratory Exam: NORMAL BREATHING PATTERN. absent: Accessory Muscle Use, Respiratory Distress - Cardiovascular Exam Cardiovascular Exam: REGULAR RHYTHM. absent: Bradycardia, Tachycardia - GI/Abdominal Exam GI & Abdominal Exam: Soft, Normal Bowel Sounds. absent: Tenderness, Rebound - Extremities Exam Extremities Exam: Full ROM, Normal Inspection. absent: Joint Swelling, Pedal Edema - Back Exam Back Exam: Full ROM, NORMAL INSPECTION - Neurological Exam Neurological Exam: Alert, Awake, Normal Gait, Oriented x3 - Psychiatric Exam Psychiatric exam: Normal Affect, Normal Mood. absent: Flat Affect - Skin Skin Exam: Dry, Intact, Normal Color, Warm Assessment and Plan - Assessment and Plan (Free Text) Assessment: 71F presents with dizziness PMH of HTN, HLD, CAD s/p CABG x2, PVD, Iron deficiency anemia, gastric and duodenal ulcers, multiple polyps in colon, Diabetes, and right-sided breast ca s/p mastectomy who presents to [facility] [place] [place] with complaint of dizziness. Plan: c/w with current medical management c/w current diabetic, low-salt diet discussed with Dr. Bella continue on lipitor 80mg POQD, ASA 81mg/Plavix [address] Cordova Patient has >80% occlusion, prior episodes of dizziness, will schedule for CEA surgery per Dr. Bella. please f/u discussed with Dr. Shayne Maddox, PGY1
--- NOTE | 2017-03-08 13:59 | CP.PCM.PN ---
<Vipin Loya - Last Filed: 03/08/17 14:16> Subjective - Date & Time of Evaluation Date of Evaluation: 03/08/17 Time of Evaluation: 09:10 - Subjective Subjective: Neurology progress note for Dr. Cordova Service Patient seen and examined OOB to chair. No acute events reported overnight. Sitting in chair without any overt distress or dizziness, denies further complaint of dizziness. Denies any new complaints, including chest pain, shortness of breath, vision changes, nausea/emesis, focal weakness, or fever/ chills. Objective - Vital Signs/Intake and Output Vital Signs (last 24 hours): Temp Pulse Resp BP Pulse Ox 98.1 F 63 20 130/56 L 97 03/08/17 07:55 03/08/17 10:00 03/08/17 07:55 03/08/17 09:22 03/08/17 07:55 Intake and Output: 03/08/17 03/08/17 06:59 18:59 Intake Total 540 Balance 540 - Medications Medications: Current Medications Anastrozole (Arimidex 1 Mg Tab) 1 mg PO DAILY [facility] Last Admin: 03/08/17 09:24 Dose: 1 mg Aspirin (Aspirin Chewable) 81 mg PO DAILY [facility] Last Admin: 03/08/17 09:23 Dose: 81 mg Atorvastatin Calcium (Lipitor) 80 mg PO DIN [facility] Last Admin: 03/07/17 17:35 Dose: 80 mg Clopidogrel Bisulfate (Plavix) 75 mg PO DAILY [facility] Last Admin: 03/08/17 09:25 Dose: 75 mg Fluticasone Propionate (Flonase) 2 actuation NS DAILY PRN PRN Reason: Allergy symptoms Home Med (Home Med) 1 unit PO DIN [facility] Last Admin: 03/07/17 17:37 Dose: Not Given Hydralazine HCl (Apresoline) 25 mg PO BID [facility] Last Admin: 03/08/17 09:22 Dose: 25 mg Hydrochlorothiazide (Microzide) 12.5 mg PO DAILY [facility] Last Admin: 03/08/17 09:22 Dose: 12.5 mg Insulin Human Lispro (Humalog Low) 0 units SC [facility] PRN Reason: Protocol Last Admin: 03/08/17 11:48 Dose: Not Given Losartan Potassium (Cozaar) 50 mg PO DAILY [facility] Last Admin: 03/08/17 09:22 Dose: 50 mg Metoprolol Tartrate (Lopressor) 50 mg PO BID [facility] Last Admin: 03/08/17 09:22 Dose: 50 mg - Labs Labs: 03/08/17 09:30 03/08/17 09:30 PT 10.8 Seconds (9.9-11.8) 03/06/17 13:35 INR 1.00 (0.93-1.08) 03/06/17 13:35 APTT 25.2 Seconds (23.7-30.8) 03/06/17 13:35 - Additional Findings Additional findings: - Constitutional Appears: Non-toxic, No Acute Distress - Head Exam Head Exam: ATRAUMATIC, NORMAL INSPECTION, NORMOCEPHALIC - Eye Exam Eye Exam: EOMI, Normal appearance. absent: Conjunctival injection, Scleral icterus - ENT Exam ENT Exam: Mucous Membranes Moist - Neck Exam Neck exam: Full ROM. Negative for: Lymphadenopathy, Tenderness, Thyromegaly - Respiratory Exam Respiratory Exam: Clear to Auscultation Bilateral, NORMAL BREATHING PATTERN. absent: Accessory Muscle Use, Chest Wall Tenderness, Decreased Breath Sounds, Rales, Rhonchi, Wheezes - Cardiovascular Exam Cardiovascular Exam: Bradycardia, REGULAR RHYTHM, +S1, +S2. absent: Tachycardia , Diastolic murmur, Irregular Rhythm, JVD, RRR (slow rate, regular rhythm), +S4 , Systolic Murmur - GI/Abdominal Exam GI & Abdominal Exam: Normal Bowel Sounds, Soft. absent: Diminished Bowel Sounds , Firm, Guarding, Hyperactive Bowel Sounds, Hypoactive Bowel Sounds, Rigid, Tenderness - Extremities Exam Extremities exam: Positive for: normal capillary refill, normal inspection, pedal pulses present. Negative for: calf tenderness, pedal edema, tenderness - Neurological Exam Awake and alert, oriented x3 (self, location, year), CN II-XII intact, moving all extremities spontaneously and on commands, gross motor and sensory intact in all extremities. - Psychiatric Exam Psychiatric exam: Normal Affect, Normal Mood - Skin Skin Exam: Dry, Intact, Normal Color, Warm Assessment and Plan - Assessment and Plan (Free Text) Assessment: This is a 71 yo F with PMH of HTN, HLD, CAD s/p CABG x2, PVD, Iron deficiency anemia, gastric and duodenal ulcers, multiple polyps in colon, Diabetes, and right-sided breast ca s/p mastectomy who presents to [facility] [place] [facility] [place] with complaint of dizziness. Her dizziness is chronic, acute exacerbation may be secondary to poor PO intake vs bradycardia. Patient is also a severe vasculopath, and most recent carotid duplex was notable for R-ICA 60-79% stenosed and L-ICA 20-39% stenosis. MRI/ MRA obtained and notable for 75% R-ICA stenosis, 50% L-ICA stenosis, and proximal and mid-right vertebral arteries concerning for severe stenosis/ occlusion. CT angio notable for 80% severe stenosis in R-ICA short segment and calcified plaque in distal L-common carotid with stenosis < 20%. Incidentally found infarct on MRI, not convincing for cause of symptoms. Vascular Surgery consulted for possible CEA in setting of symptomatic carotid stenosis. Plan: 1) MRI/MRA of Head and Neck and CT Angio obtained, please see reports for full details; Vasc Surgery consulted for possible CEA in setting of symptomatic 80% R -ICA stenosis 2) Advise Diabetic and low-salt diet 3) Avoid sudden movements 4) ASA 81mg/Plavix 75mg/Lipitor 80mg for stroke prevention and in setting of Carotid/Peripheral Vascular disease and old infarct 5) maintain Blood Glucose 140-180 6) May require outpatient vestibular rehab Patient discussed and reviewed with attending, Dr. Jesus Cordova. <Zan Cordova - Last Filed: 03/08/17 14:23> Objective - Vital Signs/Intake and Output Vital Signs (last 24 hours): Temp Pulse Resp BP Pulse Ox 98.1 F 63 20 130/56 L 97 03/08/17 07:55 03/08/17 10:00 03/08/17 07:55 03/08/17 09:22 03/08/17 07:55 Intake and Output: 03/08/17 03/08/17 06:59 18:59 Intake Total 540 Balance 540 - Medications Medications: Current Medications Anastrozole (Arimidex 1 Mg Tab) 1 mg PO DAILY [facility] Last Admin: 03/08/17 09:24 Dose: 1 mg Aspirin (Aspirin Chewable) 81 mg PO DAILY [facility] Last Admin: 03/08/17 09:23 Dose: 81 mg Atorvastatin Calcium (Lipitor) 80 mg PO DIN [facility] Last Admin: 03/07/17 17:35 Dose: 80 mg Clopidogrel Bisulfate (Plavix) 75 mg PO DAILY [facility] Last Admin: 03/08/17 09:25 Dose: 75 mg Fluticasone Propionate (Flonase) 2 actuation NS DAILY PRN PRN Reason: Allergy symptoms Home Med (Home Med) 1 unit PO DIN [facility] Last Admin: 03/07/17 17:37 Dose: Not Given Hydralazine HCl (Apresoline) 25 mg PO BID [facility] Last Admin: 03/08/17 09:22 Dose: 25 mg Hydrochlorothiazide (Microzide) 12.5 mg PO DAILY [facility] Last Admin: 03/08/17 09:22 Dose: 12.5 mg Insulin Human Lispro (Humalog Low) 0 units SC ACHS [facility] PRN Reason: Protocol Last Admin: 03/08/17 11:48 Dose: Not Given Losartan Potassium (Cozaar) 50 mg PO DAILY [facility] Last Admin: 03/08/17 09:22 Dose: 50 mg Metoprolol Tartrate (Lopressor) 50 mg PO BID [facility] Last Admin: 03/08/17 09:22 Dose: 50 mg - Labs Labs: 03/08/17 09:30 03/08/17 09:30 PT 10.8 Seconds (9.9-11.8) 03/06/17 13:35 INR 1.00 (0.93-1.08) 03/06/17 13:35 APTT 25.2 Seconds (23.7-30.8) 03/06/17 13:35 Assessment and Plan - Assessment and Plan (Free Text) Plan: IF VASCULAR SURGERY DOES NO OPT FOR INTERVENTION AT THIS TIME, THEN PT CAN BE DCED HOME.
[2017-03-08] MEDS: CRESTOR 5 MG PO SCH (17:09)
--- NOTE | 2017-03-08 17:53 | CP.PCM.PCO ---
Physician Communication Note - Physician Communication Note Physician Communication Note: spoke to daughter. Dr. Bella will see the pt and talk to fam.
--- NOTE | 2017-03-08 21:16 | CP.PCM.PCO ---
Physician Communication Note - Physician Communication Note Physician Communication Note: please see addendum to previous note by Dr Maddox.
--- NOTE | 2017-03-08 21:55 | CP.PCM.PN ---
Subjective - Date & Time of Evaluation Date of Evaluation: 03/09/17 Time of Evaluation: 00:15 - Subjective Subjective: S: Patient was seen because a sleeping pill was requested. Has no other complaints. Pertinent medical record was reviewed. O: VSS. Not in distress. LUNGS: Normal breathing pattern. NEURO:Speech normal. A: Adjustment insomnia. P:Benadryl 25 mg po stat. Objective - Vital Signs/Intake and Output Vital Signs (last 24 hours): Temp Pulse Resp BP Pulse Ox 98.9 F 64 18 145/65 100 03/08/17 16:18 03/08/17 18:00 03/08/17 16:18 03/08/17 16:18 03/08/17 16:18 Intake and Output: 03/08/17 03/09/17 18:59 06:59 Intake Total 380 Balance 380 - Medications Medications: Current Medications Anastrozole (Arimidex 1 Mg Tab) 1 mg PO DAILY [facility] Last Admin: 03/08/17 09:24 Dose: 1 mg Aspirin (Aspirin Chewable) 81 mg PO DAILY [facility] Last Admin: 03/08/17 09:23 Dose: 81 mg Atorvastatin Calcium (Lipitor) 80 mg PO DIN [facility] Last Admin: 03/08/17 17:12 Dose: 80 mg Clopidogrel Bisulfate (Plavix) 75 mg PO DAILY [facility] Last Admin: 03/08/17 09:25 Dose: 75 mg Fluticasone Propionate (Flonase) 2 actuation NS DAILY PRN PRN Reason: Allergy symptoms Home Med (Home Med) 1 unit PO DIN [facility] Last Admin: 03/08/17 17:09 Dose: Not Given Hydralazine HCl (Apresoline) 25 mg PO BID [facility] Last Admin: 03/08/17 17:12 Dose: 25 mg Hydrochlorothiazide (Microzide) 12.5 mg PO DAILY [facility] Last Admin: 03/08/17 09:22 Dose: 12.5 mg Insulin Human Lispro (Humalog Low) 0 units SC ACHS [facility] PRN Reason: Protocol Last Admin: 03/08/17 21:07 Dose: Not Given Losartan Potassium (Cozaar) 50 mg PO DAILY [facility] Last Admin: 03/08/17 09:22 Dose: 50 mg Metoprolol Tartrate (Lopressor) 50 mg PO BID [facility] Last Admin: 03/08/17 17:12 Dose: 50 mg - Labs Labs: 03/08/17 09:30 03/08/17 09:30 PT 10.8 Seconds (9.9-11.8) 03/06/17 13:35 INR 1.00 (0.93-1.08) 03/06/17 13:35 APTT 25.2 Seconds (23.7-30.8) 03/06/17 13:35
--- NOTE | 2017-03-08 23:36 | CON ---
TIME: 11:50 a.m. CHIEF COMPLAINT/HISTORY OF PRESENT ILLNESS: Ms. Fallon is a 71-year-old female who was admitted for evaluation of dizziness. I know Ms. Fallon from previous procedures on her lower extremities. She is a known vasculopath. She has type 2 diabetes. She has had a previous CABG. PAST MEDICAL HISTORY: Her past medical history is also significant for breast cancer. Her recent dizzy spell occurred while she was in bed. It lasted only a few minutes. There were no additional neurologic symptoms. She has not experienced episodes like this previously. The dizziness has completely resolved. PAST SURGICAL HISTORY: Right-sided mastectomy and CABG. ALLERGIES: NO KNOWN DRUG ALLERGIES. LABORATORY DATA: I reviewed Ms. Fallon recent imaging. She has a non 70% right ICA stenosis. Recent CTA demonstrates an occlusion of her small right vertebral artery and what appears to be a high grade stenosis at the origin of the dominant left vertebral artery. The basilar artery is unremarkable. RECOMMENDATIONS: I discussed the situation with the patient. She is currently on anti-platelet therapy, Plavix. This is her first episode and it is not completely clear if this is vascular in etiology. She should remain on her anti-platelet therapy and if any additional episodes of dizziness develop, she should undergo a vertebral arteriogram with possible left vertebral origin stent placement. Caesar Osuna MD [facility]
--- NOTE | 2017-03-09 07:26 | CP.PCM.PN ---
Subjective - Date & Time of Evaluation Date of Evaluation: 03/09/17 Time of Evaluation: 07:23 - Subjective Subjective: Vascular surgery for Dr. Bella PT S&E at bedside. Patient has not complaints at this time. [place]. patient states she is aware that she's to have the procedure at [facility] next week. Primary to determine clearance for surgery at this visit. PT denies headache, Fever, Chills, N/V, abdominal pain, dizziness. Objective - Vital Signs/Intake and Output Vital Signs (last 24 hours): Temp Pulse Resp BP Pulse Ox 98.9 F 54 L 18 145/65 100 03/08/17 16:18 03/09/17 06:00 03/08/17 16:18 03/08/17 16:18 03/08/17 16:18 Intake and Output: 03/09/17 03/09/17 06:59 18:59 Intake Total 380 Balance 380 - Medications Medications: Current Medications Anastrozole (Arimidex 1 Mg Tab) 1 mg PO DAILY [facility] Last Admin: 03/08/17 09:24 Dose: 1 mg Aspirin (Aspirin Chewable) 81 mg PO DAILY [facility] Last Admin: 03/08/17 09:23 Dose: 81 mg Atorvastatin Calcium (Lipitor) 80 mg PO DIN [facility] Last Admin: 03/08/17 17:12 Dose: 80 mg Clopidogrel Bisulfate (Plavix) 75 mg PO DAILY [facility] Last Admin: 03/08/17 09:25 Dose: 75 mg Fluticasone Propionate (Flonase) 2 actuation NS DAILY PRN PRN Reason: Allergy symptoms Home Med (Home Med) 1 unit PO DIN [facility] Last Admin: 03/08/17 17:09 Dose: Not Given Hydralazine HCl (Apresoline) 25 mg PO BID [facility] Last Admin: 03/08/17 17:12 Dose: 25 mg Hydrochlorothiazide (Microzide) 12.5 mg PO DAILY [facility] Last Admin: 03/08/17 09:22 Dose: 12.5 mg Insulin Human Lispro (Humalog Low) 0 units SC ACHS [facility] PRN Reason: Protocol Last Admin: 03/08/17 21:07 Dose: Not Given Losartan Potassium (Cozaar) 50 mg PO DAILY [facility] Last Admin: 03/08/17 09:22 Dose: 50 mg Metoprolol Tartrate (Lopressor) 50 mg PO BID [facility] Last Admin: 03/08/17 17:12 Dose: 50 mg - Labs Labs: 03/08/17 09:30 03/08/17 09:30 PT 10.8 Seconds (9.9-11.8) 03/06/17 13:35 INR 1.00 (0.93-1.08) 03/06/17 13:35 APTT 25.2 Seconds (23.7-30.8) 03/06/17 13:35 - Constitutional Appears: Non-toxic, No Acute Distress - Head Exam Head Exam: NORMAL INSPECTION - Eye Exam Eye Exam: EOMI, Normal appearance - ENT Exam ENT Exam: Mucous Membranes Moist - Neck Exam Neck Exam: Full ROM, Normal Inspection - Respiratory Exam Respiratory Exam: NORMAL BREATHING PATTERN. absent: Accessory Muscle Use, Respiratory Distress - Cardiovascular Exam Cardiovascular Exam: Bradycardia. absent: Tachycardia - GI/Abdominal Exam GI & Abdominal Exam: Soft, Normal Bowel Sounds. absent: Tenderness, Rebound - Extremities Exam Extremities Exam: Full ROM. absent: Normal Capillary Refill, Pedal Edema - Neurological Exam Neurological Exam: Alert, Awake, Normal Gait, Oriented x3 - Psychiatric Exam Psychiatric exam: Normal Affect, Normal Mood - Skin Skin Exam: Dry, Intact, Normal Color, Warm Assessment and Plan - Assessment and Plan (Free Text) Assessment: 71F presents with dizziness, resolved PMH of HTN, HLD, CAD s/p CABG x2, PVD, Iron deficiency anemia, gastric and duodenal ulcers, multiple polyps in colon, Diabetes, and right-sided breast ca s/p mastectomy Plan: c/w with current medical management c/w current diabetic, low-salt diet discussed with Dr. Bella, patient has 80% occlusion, currently asymptomatic, scheduled for CEA surgery at [facility] within a week. refer to medicine team for clearance continue on lipitor 80mg POQD, ASA 81mg/Plavix [address]mg per [address] Cordova discussed with Dr. Shayne Maddox, DO PGY1
[2017-03-09 08:04] VITALS: BP 145/67; RESP 20; TEMP 97.7; O2SAT 98
[2017-03-09] MEDS: Insulin Lispro (humaLOG) LOW Coverage SC SCH (09:02)
--- NOTE | 2017-03-09 09:47 | CP.PCM.PN ---
<Vipin Loya - Last Filed: 03/09/17 12:38> Subjective - Date & Time of Evaluation Date of Evaluation: 03/09/17 Time of Evaluation: 07:45 - Subjective Subjective: Neurology progress note for Dr. Cordova Service Patient seen and examined at bedside. No acute events reported overnight. Lying in bed without any overt distress or dizziness, continues to deny any new dizziness. Denies all other complaints, including chest pain, shortness of breath, vision changes, nausea/emesis, focal weakness, or fever/chills. As per Vasc Surgery, clear for d/c to home on ASA/Plavix, with undergo CEA next week at [facility] with Dr. Bella. Objective - Vital Signs/Intake and Output Vital Signs (last 24 hours): Temp Pulse Resp BP Pulse Ox 97.7 F 60 20 145/67 98 03/09/17 08:03 03/09/17 09:03 03/09/17 08:03 03/09/17 09:03 03/09/17 08:03 Intake and Output: 03/09/17 03/09/17 06:59 18:59 Intake Total 380 Balance 380 - Medications Medications: Current Medications Anastrozole (Arimidex 1 Mg Tab) 1 mg PO DAILY [facility] Last Admin: 03/08/17 09:24 Dose: 1 mg Aspirin (Aspirin Chewable) 81 mg PO DAILY [facility] Last Admin: 03/09/17 09:01 Dose: 81 mg Atorvastatin Calcium (Lipitor) 80 mg PO DIN [facility] Last Admin: 03/08/17 17:12 Dose: 80 mg Clopidogrel Bisulfate (Plavix) 75 mg PO DAILY [facility] Last Admin: 03/09/17 09:03 Dose: 75 mg Fluticasone Propionate (Flonase) 2 actuation NS DAILY PRN PRN Reason: Allergy symptoms Home Med (Home Med) 1 unit PO DIN [facility] Last Admin: 03/08/17 17:09 Dose: Not Given Hydralazine HCl (Apresoline) 25 mg PO BID [facility] Last Admin: 03/09/17 09:03 Dose: 25 mg Hydrochlorothiazide (Microzide) 12.5 mg PO DAILY [facility] Last Admin: 03/09/17 09:03 Dose: 12.5 mg Insulin Human Lispro (Humalog Low) 0 units SC [facility] PRN Reason: Protocol Last Admin: 03/09/17 09:02 Dose: Not Given Losartan Potassium (Cozaar) 50 mg PO DAILY [facility] Last Admin: 03/09/17 09:01 Dose: 50 mg Metoprolol Tartrate (Lopressor) 50 mg PO BID [facility] Last Admin: 03/09/17 09:02 Dose: 50 mg - Labs Labs: 03/08/17 09:30 03/08/17 09:30 PT 10.8 Seconds (9.9-11.8) 03/06/17 13:35 INR 1.00 (0.93-1.08) 03/06/17 13:35 APTT 25.2 Seconds (23.7-30.8) 03/06/17 13:35 - Additional Findings Additional findings: - Constitutional Appears: Non-toxic, No Acute Distress - Head Exam Head Exam: ATRAUMATIC, NORMAL INSPECTION, NORMOCEPHALIC - Eye Exam Eye Exam: EOMI, Normal appearance. absent: Conjunctival injection, Scleral icterus - ENT Exam ENT Exam: Mucous Membranes Moist - Neck Exam Neck exam: Full ROM. Negative for: Lymphadenopathy, Tenderness, Thyromegaly - Respiratory Exam Respiratory Exam: Clear to Auscultation Bilateral, NORMAL BREATHING PATTERN. absent: Accessory Muscle Use, Chest Wall Tenderness, Decreased Breath Sounds, Rales, Rhonchi, Wheezes - Cardiovascular Exam Cardiovascular Exam: Bradycardia, REGULAR RHYTHM, +S1, +S2. absent: Tachycardia , Diastolic murmur, Irregular Rhythm, JVD, RRR (slow rate, regular rhythm), +S4 , Systolic Murmur - GI/Abdominal Exam GI & Abdominal Exam: Normal Bowel Sounds, Soft. absent: Diminished Bowel Sounds , Firm, Guarding, Hyperactive Bowel Sounds, Hypoactive Bowel Sounds, Rigid, Tenderness - Extremities Exam Extremities exam: Positive for: normal inspection. Negative for: pedal edema, tenderness - Neurological Exam Awake and alert, oriented x3 (self, location, year), moving all extremities spontaneously - Psychiatric Exam Psychiatric exam: Normal Affect, Normal Mood - Skin Skin Exam: Dry, Intact, Normal Color, Warm Assessment and Plan - Assessment and Plan (Free Text) Assessment: This is a 71 yo F with PMH of HTN, HLD, CAD s/p CABG x2, PVD, Iron deficiency anemia, gastric and duodenal ulcers, multiple polyps in colon, Diabetes, and right-sided breast ca s/p mastectomy who [place] [facility] [place] complaint of [place]iness. Her dizziness is chronic, acute exacerbation may be secondary to poor PO intake vs bradycardia, resolved with Valium x1 on day of admission. Due to vasculopath hx, and known prior Carotid stenosis, new imaging was obtained (CT angio, MRI/MRA, Carotid US) notable for 80% severe stenosis in R-ICA short segment and calcified plaque in distal L-common carotid with stenosis < 20%. 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 As per Vascular Surgery, patient safe for discharge on ASA and Plavix, and will be scheduled for CEA at [facility] next week. Plan: 1) MRI/MRA of Head and Neck and CT Angio obtained, please see reports for full details; CEA for R-ICA 80% stenosis at [facility] [place] next week as per Vasc Surg 2) Advise Diabetic and low-salt diet 3) Avoid sudden movements 4) ASA 81mg/Plavix 75mg/Lipitor 80mg for stroke prevention and in setting of Carotid/Peripheral Vascular disease and old infarct, continue on discharge 5) maintain Blood Glucose 140-180 6) May require outpatient vestibular rehab Patient discussed and reviewed with attending, Dr. Jesus Cordova. From Neurology standpoint, clear to discharge on ASA/Plavix/Lipitor, follow up with Vasc Surgery as instructed for CEA. <Zan Cordova - Last Filed: 03/09/17 12:43> Objective - Vital Signs/Intake and Output Vital Signs (last 24 hours): Temp Pulse Resp BP Pulse Ox 97.7 F 52 L 20 145/67 98 03/09/17 08:03 03/09/17 10:00 03/09/17 08:03 03/09/17 09:03 03/09/17 08:03 Intake and Output: 03/09/17 03/09/17 06:59 18:59 Intake Total 380 Balance 380 - Medications Medications: Current Medications Anastrozole (Arimidex 1 Mg Tab) 1 mg PO DAILY [facility] Last Admin: 03/09/17 10:00 Dose: 1 mg Aspirin (Aspirin Chewable) 81 mg PO DAILY [facility] Last Admin: 03/09/17 09:01 Dose: 81 mg Atorvastatin Calcium (Lipitor) 80 mg PO DIN [facility] Last Admin: 03/08/17 17:12 Dose: 80 mg Clopidogrel Bisulfate (Plavix) 75 mg PO DAILY [facility] Last Admin: 03/09/17 09:03 Dose: 75 mg Fluticasone Propionate (Flonase) 2 actuation NS DAILY PRN PRN Reason: Allergy symptoms Home Med (Home Med) 1 unit PO DIN [facility] Last Admin: 03/08/17 17:09 Dose: Not Given Hydralazine HCl (Apresoline) 25 mg PO BID [facility] Last Admin: 03/09/17 09:03 Dose: 25 mg Hydrochlorothiazide (Microzide) 12.5 mg PO DAILY [facility] Last Admin: 03/09/17 09:03 Dose: 12.5 mg Insulin Human Lispro (Humalog Low) 0 units SC ACHS [facility] PRN Reason: Protocol Last Admin: 03/09/17 09:02 Dose: Not Given Losartan Potassium (Cozaar) 50 mg PO DAILY [facility] Last Admin: 03/09/17 09:01 Dose: 50 mg Metoprolol Tartrate (Lopressor) 50 mg PO BID [facility] Last Admin: 03/09/17 09:02 Dose: 50 mg - Labs Labs: 03/08/17 09:30 03/08/17 09:30 PT 10.8 Seconds (9.9-11.8) 03/06/17 13:35 INR 1.00 (0.93-1.08) 03/06/17 13:35 APTT 25.2 Seconds (23.7-30.8) 03/06/17 13:35 Attending/Attestation - Attestation I have personally seen and examined this patient.: Yes I have fully participated in the care of the patient.: Yes I have reviewed all pertinent clinical information, including history, physical exam and plan: Yes
[2017-03-09 10:19] VITALS: PULSE 52
--- NOTE | 2017-03-10 01:36 | CON ---
DATE: 03/09/2017 CARDIOLOGY PHYSICIAN: Dr. Sean Falcon. REASON FOR CONSULTATION: Preop evaluation, risk stratification for carotid artery endarterectomy, history of coronary artery disease, CABG. BRIEF CLINICAL HISTORY: This is a 71-year-old female with a past medical history significant for coronary artery disease, status post multiple stent, history of coronary artery bypass surgery in 03/[address] [facility], [address] Pro Che, who recently admitted with dizziness. Workup showed carotid artery stenosis, 70% stenosis of RCA, and occlusion of a small right vertebral artery and what appears to be high-grade stenosis in origin of the dominant left vertebral artery. The patient denies any chest pain, shortness of breath, any palpitations. PAST MEDICAL HISTORY: Significant for coronary artery, status post stent in the past, history of coronary artery bypass surgery x2 at [facility] by Dr. Pro Che, history of hypertension, hyperlipidemia, diabetes, history of peripheral artery status post peripheral stenting. PAST SURGICAL HISTORY: Significant for coronary artery bypass surgery in 2013, history of right breast CA, status post mastectomy, history of colonoscopy, and multiple vascular procedures, peripheral angiogram. SOCIAL HISTORY: Denies any history of alcohol abuse. ALLERGIES: NO KNOWN DRUG ALLERGIES. CURRENT MEDICATIONS: The patient is taking at home hydrochlorothiazide, hydralazine, Crestor, metformin, losartan, clopidogrel, aspirin. REVIEW OF SYSTEMS: As per HPI. PHYSICAL EXAMINATION: VITAL SIGNS: Temperature afebrile, heart rate 83, blood pressure 145/67. HEENT: PERRLA. Extraocular muscles intact. NECK: Supple. No carotid bruits or thyromegaly. CHEST: Clear to auscultation. HEART: S1 and S2 regular. ABDOMEN: Soft. EXTREMITIES: Clubbing and cyanosis negative. LABORATORY DATA: Blood workup as follows: WBC 3.8, hemoglobin 9.8, hematocrit 27.5, platelet count 153. Chemistry: Shows sodium 140, potassium 3.7, chloride 103, carbon dioxide of 27, anion gap of 14, BUN 28, creatinine 1.3. EKG shows normal sinus rhythm, no acute ST-T changes noted. IMPRESSION: Dizziness, carotid artery stenosis requiring carotid endarterectomy, history of coronary artery bypass surgery 2013, stress test in 2103 and was negative for ischemia. Last echocardiography done on 03/10/2015, there is ejection fraction of 55% to 60 %, mild mitral regurgitation, mild tricuspid regurgitation, and trace aortic regurgitation, diabetes, hypertension, hyperlipidemia, severe peripheral arterial disease. RECOMMENDATION: If the patient needs emergent carotid artery endarterectomy, the patient to go with a moderate risk. We will get echo to assess LV function, but the patient needs elective carotid artery surgery, suggest stress test. Continue perioperative beta lacy. We will follow with you. Because of the vascular procedure, high risk, last stress test in 2013. The patient is scheduled for a stress test next week and routine. Thank you for providing opportunity in taking care of the patient. Sean Falcon MD
--- NOTE | 2017-03-10 10:00 | CARD ---
APPROVED REPORT EXAM: Two-dimensional and M-mode echocardiogram with Doppler and color Doppler. INDICATION CABG/CAD/PRE-OP 2D DIMENSIONS Left Atrium (2D)4.4 (1.6-4.0cm)IVSd1.1 (0.7-1.1cm) LVDd4.7 (3.9-5.9cm)PWd1.1 (0.7-1.1cm) LVDs2.8 (2.5-4.0cm)FS (%) 40.1 % LVEF (%)70.8 (>50%) M-Mode DIMENSIONS Aortic Root3.50 (2.2-3.7cm)Aortic Cusp Exc.1.90 (1.5-2.0cm) Aortic Valve AoV Peak Lsejoefg075.0cm/Adan Peak GR.12mmHg Mitral Valve MV E Plqoebct49.9cm/sMV A Ybpjtpjs941.0cm/sE/A ratio0.6 TDI Lateral E' Peak V12.90cm/sMedial E' Peak V6.04cm/sE/Lateral E'5.3 E/Medial E'11.2 Pulmonary Valve PV Peak Xfmcyykg27.2cm/sPV Peak Grad.3mmHg Tricuspid Valve TR Peak Oeketrlm535jx/sRAP [id number] Peak Gr.21mmHg [id number] LEFT VENTRICLE The left ventricle is normal size. There is normal left ventricular wall thickness. The left ventricular function is normal.EF-65-70% There is normal LV segmental wall motion. Transmitral Doppler flow pattern is Grade III-reversible restrictive diastolic dysfunction. No left ventricle thrombus noted on this study. There is no ventricular septal defect visualized. There is no left ventricular aneurysm. There is no mass noted in the left ventricle. RIGHT VENTRICLE The right ventricle is normal size. There is normal right ventricular wall thickness. The right ventricular systolic function is normal. ATRIA The left atrium is mildly dilated. The right atrium size is normal. The interatrial septum is intact with no evidence for an atrial septal defect. AORTIC VALVE The aortic valve is thickened but opens well. No aortic regurgitation is present. There is no aortic valvular stenosis. There is no aortic valvular vegetation. MITRAL VALVE The mitral valve is thickened but opens well. Mitral annular calcification is mild. Mitral regurgitation is trace. There is no mitral valve stenosis. There is no evidence of mitral valve prolapse. TRICUSPID VALVE The tricuspid valve leaflets are thickened , but open well. There is trace tricuspid regurgitation.RVSP-31 mmof hg. There is no tricuspid valve stenosis. There is no tricuspid valve prolapse or vegetation. PULMONIC VALVE The pulmonary valve is normal in structure. There is no pulmonic valvular regurgitation. There is no pulmonic valvular stenosis. GREAT VESSELS The aortic root is normal in size. The ascending aorta is normal in size. The pulmonary artery is normal. The IVC is normal in size and collapses >50% with inspiration. PERICARDIAL EFFUSION There is no pleural effusion. There is no pericardial effusion. <Conclusion> The left ventricle is normal size. There is normal left ventricular wall thickness. The left ventricular function is normal.EF-65-70% Mitral regurgitation is trace. There is trace tricuspid regurgitation.RVSP-31 mmof Hg. No vegetation or thrombus noted..
--- NOTE | 2017-03-12 15:25 | CP.PCM.PN ---
Subjective - Date & Time of Evaluation Date of Evaluation: 03/08/17 Time of Evaluation: 09:00 - Subjective Subjective: Comfortable in bed. No diziness. No nausea, vomiting. No chest pain. Limited ambulation due to diziness. Objective - Vital Signs/Intake and Output Vital Signs (last 24 hours): Temp Pulse Resp BP Pulse Ox 97.7 F 52 L 20 145/67 98 03/09/17 08:03 03/09/17 10:00 03/09/17 08:03 03/09/17 09:03 03/09/17 08:03 - Labs Labs: 03/08/17 09:30 03/08/17 09:30 PT 10.8 Seconds (9.9-11.8) 03/06/17 13:35 INR 1.00 (0.93-1.08) 03/06/17 13:35 APTT 25.2 Seconds (23.7-30.8) 03/06/17 13:35 - Constitutional Appears: Well, Non-toxic - Head Exam Head Exam: ATRAUMATIC, NORMAL INSPECTION, NORMOCEPHALIC - Eye Exam Eye Exam: Normal appearance Pupil Exam: NORMAL ACCOMODATION - ENT Exam ENT Exam: Mucous Membranes Moist, Normal Exam - Neck Exam Neck Exam: Normal Inspection - Respiratory Exam Respiratory Exam: Clear to Ausculation Bilateral, NORMAL BREATHING PATTERN - Cardiovascular Exam Cardiovascular Exam: REGULAR RHYTHM, +S1, +S2 - GI/Abdominal Exam GI & Abdominal Exam: Soft, Normal Bowel Sounds - Extremities Exam Extremities Exam: Normal Capillary Refill, Normal Inspection - Back Exam Back Exam: NORMAL INSPECTION - Neurological Exam Neurological Exam: Alert, Normal Gait, Oriented x3 - Psychiatric Exam Psychiatric exam: Normal Affect, Normal Mood - Skin Skin Exam: Normal Color, Warm Assessment and Plan - Assessment and Plan (Free Text) Assessment: 1. Dizziness. 2. Internal carotid artery stenosis. 3. Right-sided breast cancer. 4. Iron deficiency anemia. 5. Coronary artery disease. 6. Peripheral vascular disease. PLAN: neurology consult appreciated. Vascular surgery consult Dr. Bella requested. iron deficiency anemia; hemoglobin stable at 10. History of breast cancer, no evidence of recurrence.. Renal; BUN and creatinine are stable. Continue aspirin 81 mg daily, Lipitor 80 mg daily, Plavix 75 mg daily, hydralazine 25 mg p.o. b.i.d., hydrochlorothiazide 12.5 mg daily, sliding scale insulin, Cozaar 50 mg p.o. daily, beta lacy 50 mg p.o. b.i.d. Bedside PT.
--- NOTE | 2017-03-12 15:31 | CP.PCM.DIS ---
Provider - Provider Date of Admission: 03/07/17 14:22 Attending physician: All Landaverde MD Time Spent in preparation of Discharge (in minutes): 50 Hospital Course - Lab Results Lab Results: Most Recent Lab Values WBC 3.8 10^3/ul (4.5-11.0) L D 03/08/17 09:30 RBC 3.28 10^6/uL (3.5-6.1) L 03/08/17 09:30 Hgb 9.2 g/dL (12.0-16.0) L 03/08/17 09:30 Hct 27.5 % (36.0-48.0) L 03/08/17 09:30 MCV 83.8 fl (80.0-105.0) 03/08/17 09:30 MCH 28.0 pg (25.0-35.0) 03/08/17 09:30 MCHC 33.5 g/dl (31.0-37.0) 03/08/17 09:30 RDW 15.4 % (11.5-14.5) H 03/08/17 09:30 Plt Count 153 10^3/uL (120.0-450.0) 03/08/17 09:30 MPV 10.9 fl (7.0-11.0) 03/08/17 09:30 Gran % 49.9 % (50.0-68.0) L 03/08/17 09:30 Lymph % (Auto) 27.3 % (22.0-35.0) 03/08/17 09:30 [place] % (Auto) 22.3 % (1.0-6.0) H 03/08/17 09:30 Eos % (Auto) 0.5 % (1.5-5.0) L 03/08/17 09:30 Baso % (Auto) 0.0 % (0.0-3.0) 03/08/17 09:30 Gran # 1.90 (1.4-6.5) 03/08/17 09:30 Lymph # 1.0 (1.2-3.4) L 03/08/17 09:30 [place] # 0.9 (0.1-0.6) H 03/08/17 09:30 Eos # 0.0 (0.0-0.7) 03/08/17 09:30 Baso # 0.00 K/mm3 (0.0-2.0) 03/08/17 09:30 Neutrophils % (Manual) 61 % (50.0-70.0) 03/06/17 13:35 Lymphocytes % (Manual) 22 % (22.0-35.0) 03/06/17 13:35 Atypical Lymphs % 3 % (0.0-0.0) H 03/06/17 13:35 Monocytes % (Manual) 9 % (1.0-6.0) H 03/06/17 13:35 Eosinophils % (Manual) 1 % (0.0-3.0) 03/06/17 13:35 Metamyelocytes % 2 % 03/06/17 13:35 Myelocytes % 2 % 03/06/17 13:35 Hypochromasia 1+ 03/06/17 13:35 Anisocytosis (manual) 1+ 03/06/17 13:35 Microcytosis (manual) 1+ 03/06/17 13:35 Ovalocytes Slight 03/06/17 13:35 PT 10.8 Seconds (9.9-11.8) 03/06/17 13:35 INR 1.00 (0.93-1.08) 03/06/17 13:35 APTT 25.2 Seconds (23.7-30.8) 03/06/17 13:35 Sodium 140 mmol/L (132-148) 03/08/17 09:30 Potassium 3.7 mmol/L (3.6-5.0) 03/08/17 09:30 Chloride 103 mmol/L (98-107) 03/08/17 09:30 Carbon Dioxide 24 mmol/L (21-33) 03/08/17 09:30 Anion Gap 17 (10-20) 03/08/17 09:30 BUN 28 mg/dL (7-21) H 03/08/17 09:30 Creatinine 1.3 mg/dL (0.5-1.4) 03/08/17 09:30 Est GFR ( Amer) 49 03/08/17 09:30 Est GFR (Non-Af Amer) 40 03/08/17 09:30 POC Glucose (mg/dL) 158 mg/dL (65-110) H 03/09/17 11:22 Random Glucose 96 mg/dL (70-110) 03/08/17 09:30 Hemoglobin A1c 6.5 % (4.2-6.5) 03/08/17 05:50 Calcium 10.0 mg/dL (8.4-10.5) 03/08/17 09:30 Magnesium 1.9 mg/dL (1.7-2.2) 03/06/17 13:35 Iron 60 ug/dL (45-180) 03/08/17 09:30 TIBC 249 ug/dL (265-497) L 03/08/17 09:30 % Saturation 24 % (20-55) 03/08/17 09:30 Ferritin 209.0 ng/mL 03/08/17 09:30 Total Bilirubin 0.4 mg/dL (0.2-1.3) 03/08/17 09:30 AST 70 U/L (15-39) H 03/08/17 09:30 ALT 23 U/L (7-56) 03/08/17 09:30 Alkaline Phosphatase 59 U/L (38-133) 03/08/17 09:30 Lactate Dehydrogenase 260 U/L (333-699) L 03/06/17 13:35 Total Creatine Kinase < 20 U/L (35-230) L 03/06/17 13:35 Troponin I < 0.01 ng/mL 03/06/17 13:35 Total Protein 7.6 g/dL (5.8-8.3) 03/08/17 09:30 Albumin 4.1 g/dL (3.0-4.8) 03/08/17 09:30 Globulin 3.5 gm/dL 03/08/17 09:30 Albumin/Globulin Ratio 1.2 (1.1-1.8) 03/08/17 09:30 Triglycerides 190 mg/dL (35-160) H 03/06/17 13:35 Cholesterol 164 mg/dL (130-200) 03/06/17 13:35 LDL Cholesterol Direct 93 mg/dL (0-129) 03/06/17 13:35 HDL Cholesterol 25 mg/dL (29-60) L 03/06/17 13:35 Lipase 238 U/L (23-300) 03/06/17 13:35 Urine Color Yellow (YELLOW) 03/06/17 15:12 Urine Appearance Clear (CLEAR) 03/06/17 15:12 Urine pH 6.5 (4.7-8.0) 03/06/17 15:12 Ur Specific [place] 1.015 (1.005-1.035) 03/06/17 15:12 Urine Protein Negative mg/dL (<30 mg/dL) 03/06/17 15:12 Urine Glucose (UA) Negative mg/dL (NEGATIVE) 03/06/17 15:12 Urine Ketones Negative mg/dL (NEGATIVE) 03/06/17 15:12 Urine Blood Negative (NEGATIVE) 03/06/17 15:12 Urine Nitrate Negative (NEGATIVE) 03/06/17 15:12 Urine Bilirubin Negative (NEGATIVE) 03/06/17 15:12 Urine Urobilinogen 0.2 E.U./dL (<1 E.U./dL) 03/06/17 15:12 Ur Leukocyte Esterase Trace Alana/uL (NEGATIVE) H 03/06/17 15:12 Urine RBC 0 - 2 /hpf (0-2) 03/06/17 15:12 Urine WBC 2 - 5 /hpf (0-6) 03/06/17 15:12 Ur Epithelial Cells 3 - 4 /hpf (0-5) 03/06/17 15:12 - Hospital Course Hospital Course: 1. Dizziness. 2. Internal carotid artery stenosis. 3. Right-sided breast cancer. 4. Iron deficiency anemia. 5. Coronary artery disease. 6. Peripheral vascular disease. Hospital course : Evaluated by neurology and vascular surgery. 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 She is scheduled for [facility] next week at [facility]. Currently stable. Evaluated by cardiology, Dr. Falcon. Currently stable. being discharged home. Discharge Exam - Head Exam Head Exam: ATRAUMATIC, NORMAL INSPECTION, NORMOCEPHALIC - Eye Exam Eye Exam: EOMI, Normal appearance Pupil Exam: NORMAL ACCOMODATION - ENT Exam ENT Exam: Mucous Membranes Dry, Normal Oropharynx - Neck Exam Neck exam: Full Rom, Normal Inspection - Respiratory Exam Respiratory Exam: Clear to PA & Lateral, NORMAL BREATHING PATTERN - Cardiovascular Exam Cardiovascular Exam: REGULAR RHYTHM, +S1, +S2 - GI/Abdominal Exam GI & Abdominal Exam: Normal Bowel Sounds, Unremarkable - Back Exam Back exam: NORMAL INSPECTION - Neurological Exam Neurological exam: CN II-XII Intact, Normal Gait, Oriented x3 - Psychiatric Exam Psychiatric exam: Normal Affect, Normal Mood - Skin Skin Exam: Normal Color, Warm Discharge Plan - Follow Up Plan Condition: STABLE Disposition: HOME/ ROUTINE Instructions: Transient Ischemic Attack (DC), Stroke (GEN) Additional Instructions: Patient discharged to home. Patient to follow up with primary care doctor in 1 week. planned for CEA at next week with Dr. Bella. Continue home meds : Lipitor 80 mg daily, Plavix 75 mg daily, hydralazine 25 mg p.o. b.i.d., hydrochlorothiazide 12.5 mg daily, Cozaar 50 mg p.o. daily, beta lacy 50 mg p.o. b.i.d.
== END 2017-03-09 14:44 | disposition home or self-care (01) | DRG 68 ==
LOC: ED 12:26 → ERH 14:31 → 3RNO 15:28 → OBSVTOIN 03-07 14:22
PROVIDERS: ADMIT Internal Medicine Nephrology; ATTEND Internal Medicine Nephrology
DX: I65.21 Occlusion and stenosis of right carotid artery (principal); E11.51 Type 2 diabetes mellitus with diabetic peripheral angiopathy without gangrene; K26.9 Duodenal ulcer, unspecified as acute or chronic, without hemorrhage or perforation; D50.9 Iron deficiency anemia, unspecified; Z85.3 Personal history of malignant neoplasm of breast; Z85.41 Personal history of malignant neoplasm of cervix uteri; E78.00 Pure hypercholesterolemia, unspecified; E78.5 Hyperlipidemia, unspecified; F51.02 Adjustment insomnia; I10 Essential (primary) hypertension; I25.10 Atherosclerotic heart disease of native coronary artery without angina pectoris; K21.9 Gastro-esophageal reflux disease without esophagitis; Z79.811 Long term (current) use of aromatase inhibitors; Z79.84 Long term (current) use of oral hypoglycemic drugs; Z79.899 Other long term (current) drug therapy; Z86.010 Personal history of colon polyps; Z86.73 Personal history of transient ischemic attack (TIA), and cerebral infarction without residual deficits; Z87.11 Personal history of peptic ulcer disease; Z90.11 Acquired absence of right breast and nipple; Z92.21 Personal history of antineoplastic chemotherapy; Z92.3 Personal history of irradiation; Z95.1 Presence of aortocoronary bypass graft; Z95.820 Peripheral vascular angioplasty status with implants and grafts; Z95.5 Presence of coronary angioplasty implant and graft; R26.81 Unsteadiness on feet; Z98.42 Cataract extraction status, left eye; Z98.41 Cataract extraction status, right eye; I08.3 Combined rheumatic disorders of mitral, aortic and tricuspid valves